=== PATIENT | male | born 1940 | race Caucasian/White ===

== ENCOUNTER 2016-12-11 14:04 | Outpatient (CLI) | payer MEDICARE | END 2016-12-11 14:05 | disposition home or self-care (01) | DX: G47.33 Obstructive sleep apnea (adult) (pediatric) (principal) | CPT/HCPCS: 99213; G0463 ==

== ENCOUNTER 2017-01-08 14:11 | Outpatient (CLI) | payer MEDICARE | END 2017-01-08 14:12 | disposition home or self-care (01) | DX: G47.33 Obstructive sleep apnea (adult) (pediatric) (principal) | CPT/HCPCS: 99213; G0463 ==

== ENCOUNTER 2017-03-28 08:43 | Outpatient (CLI) | payer MEDICARE | END 2017-03-28 08:44 | disposition home or self-care (01) | DX: I10 Essential (primary) hypertension (principal); E78.5 Hyperlipidemia, unspecified ==

== ENCOUNTER 2017-04-09 17:30 | Emergency (ER) | payer MEDICARE ==
[2017-04-09] MEDS ORDERED: BUFFERED LIDOCAINE 10 ML SYRINGE ONE (17:53)
[2017-04-09] MEDS ORDERED: TETANUS/DIPHTHERIA/PERTUSSIS 0.5 ML SYRINGE IM ONE ×2 (18:18→18:36)
[2017-04-09] MEDS ORDERED: CEPHALEXIN 250 MG CAPSULE PO STA (18:18)
--- NOTE | 2017-04-09 18:21 | ED Physician Documentation ---
PD HPI UPPER EXT INJURY - Stated complaint Stated Complaint: R THUMB LAC - Chief complaint Chief Complaint: Laceration - History obtained from History obtained from: Patient - History of Present Illness Location: Right (76-year-old gentleman, not up-to-date on tetanus, right- handed. Cut his right thumb on a table saw today. Has an extensive laceration on the thumb. Says he is allergic to tetanus, but that was 50 years ago, and it just made his arm sore. After discussion of risks and benefits he does want tetanus shot.) Review of Systems Constitutional: reports: Reviewed and negative Nose: reports: Reviewed and negative Throat: reports: Reviewed and negative PD PAST MEDICAL HISTORY - Past Medical History Cardiovascular: Hypertension Respiratory: None Neuro: None, CVA Endocrine/Autoimmune: None Psych: None Musculoskeletal: Osteoarthritis - Present Medications Home Medications: Ambulatory Orders Medication Instructions Recorded Confirmed Aspirin Chewable [[place]von 81 mg PO DAILY 04/09/17 04/09/17 Aspirin] Cephalexin [Keflex] 500 mg PO QID #40 capsule 04/09/17 HYDROcod/ACETAM 5/325 [[place] 5/325] 1 - 2 ea PO Q6H PRN #15 tablet 04/09/17 Valsartan 80 mg PO DAILY 04/09/17 04/09/17 - Allergies Allergies/Adverse Reactions: Allergies Allergy/AdvReac Type Severity Reaction Status Date / Time Tetanus Vaccines and Toxoid Allergy Unknown Verified 04/09/17 17:51 - Social History Does the pt smoke?: No Smoking Status: Never smoker Does the pt drink ETOH?: No Does the pt have substance abuse?: No - Immunizations Immunizations are current?: No Immunizations: TDAP >10years/unknown PD ED PE NORMAL - Vitals Vital signs reviewed: Yes - General General: Alert and oriented X 3, No acute distress - HEENT HEENT: PERRL, EOMI - Extremities Extremities: Other (The radial side of the right thumb there is a curved deep 3 cm laceration which has avulsed some of the nail.) - Neuro Neuro: Alert and oriented X 3, Normal speech - Psych Psych: Normal mood, Normal affect Results - Vitals Vitals: Vital Signs - 24 hr 04/09/17 04/09/17 17:35 18:56 Temperature 36.0 C L 36.5 C Heart Rate 64 61 Respiratory 16 12 Rate Blood Pressure 173/93 H 160/84 H O2 Saturation 97 100 Oxygen O2 Source Room air - Rads (name of study) R thumb Radiology: EMP read contemporaneously (Right thumb swelling with a subtle fracture of the tuft) Procedures - Laceration (location) right thumb Length in cm: 3 Wound type: Curved, Irregular, Into subcut fat Neurovascular status: No: Sensory intact (flap is insensate) Tendon involvement: Tendon intact, Tendon Injury Anesthesia: Lidocaine 1%, With bicarb Wound Preparation: Chlorhexadine, Irrigated copiously NS, Debrided extensively ( ppiece of nail removed) Skin layer closure: Nylon, Interrupted, Size #-0 - enter number (4-0), Sutures - enter # (13) Other: Patient tolerated well, No complications, Neurovascular intact, Tetanus booster given Departure - Departure Disposition: 01 Home, Self Care Clinical Impression: Thumb laceration Qualifiers: Encounter type: initial encounter Laterality: right Qualified Code(s): S61.011A - Laceration without foreign body of right thumb without damage to nail , initial encounter Open fracture of thumb Qualifiers: Encounter type: initial encounter Phalanx: distal Fracture alignment: nondisplaced Laterality: right Qualified Code(s): S62.524B - Nondisplaced fracture of distal phalanx of right thumb, initial encounter for open fracture Condition: Good Record reviewed to determine appropriate education?: Yes Instructions: ED Laceration All Prescriptions: Cephalexin [Keflex] 500 mg PO QID #40 capsule HYDROcod/ACETAM 5/325 [[place] 5/325] 1 - 2 ea PO Q6H PRN #15 tablet PRN Reason: Pain Comments: Wash the wound briefly but in general keep it dry and covered. Come back for any signs of infection which would include: Redness, swelling, drainage, increased pain, or fevers. Followup with your doctor in 14 days for suture removal. Your blood pressure was elevated today on check in to the emergency department. This does not mean that you have hypertension, it is a common phenomenon to check into the emergency department and have elevated blood pressure. I recommend that you see your primary care physician within the week to have it rechecked when you're feeling better.
[2017-04-09] MEDS ORDERED: CEPHALEXIN 250 MG CAPSULE PO ONE (18:35)
--- NOTE | 2017-04-09 18:54 | XRAY Preliminary Report ---
Exam: XR Finger(s) RT IMPRESSION: 1. Right thumb swelling noted. 2. Suspect a subtle fracture of the right thumb distal phalanx tuft. 3. No dislocation. [facility] SITE ID: [id number]
[2017-04-09 18:57] VITALS: BP 160/84
--- NOTE | 2017-04-09 19:06 | XRAY Report ---
EXAM: RIGHT FIRST DIGIT RADIOGRAPHY EXAM DATE: 04/09/2017 06:34 PM. CLINICAL HISTORY: Thumb injury. COMPARISON: None. TECHNIQUE: 3 views. FINDINGS: Bones: Mild cortical irregularity adjacent to the medial distal first phalanx tuft. This could repres ent a small fracture fragment. Joints: Normal. No subluxations. Soft Tissues: Diffuse swelling in the distal right thumb. IMPRESSION: 1. Right thumb swelling noted. 2. Suspect a subtle fracture of the right thumb distal phalanx tuft. 3. No dislocation. [facility] Referring Provider Line: [phone] SITE ID: [id number]
== END 2017-04-09 19:04 | disposition home or self-care (01) ==
LOC: ED 17:30
DX: S62.521B Displaced fracture of distal phalanx of right thumb, initial encounter for open fracture (principal); W31.2XXA Contact with powered woodworking and forming machines, initial encounter; Z23 Encounter for immunization; I10 Essential (primary) hypertension; Z86.73 Personal history of transient ischemic attack (TIA), and cerebral infarction without residual deficits; M19.90 Unspecified osteoarthritis, unspecified site; Z79.82 Long term (current) use of aspirin
CPT/HCPCS: 11730; 12002; 73140; 90471; 90715; 99283; A9270

== ENCOUNTER 2018-01-16 14:49 | Outpatient (CLI) | payer MEDICARE | END 2018-01-16 14:50 | disposition home or self-care (01) | LOC: SC 14:49 | PROVIDERS: ATTEND Nurse Practitioner Family | DX: G47.33 Obstructive sleep apnea (adult) (pediatric) (principal) | CPT/HCPCS: 99214; G0463; 99212 ==

== ENCOUNTER 2018-02-13 09:33 | Outpatient (CLI) | payer MEDICARE ==
[2018-02-13 17:52] LABS: ALBUMIN 4.1 g/dL (3.2-5.5); ALBUMIN/GLOBULIN RATIO 1.2 (1.0-2.2); ALKALINE PHOSPHATASE 45 IU/L (42-121); ALT ALANINE AMINOTRANSFERASE 13 IU/L (10-60); AST ASPARTATE AMINOTRANSFERASE 18 IU/L (10-42); BILIRUBIN,TOTAL 0.9 mg/dL (0.2-1.0); BUN - BLOOD UREA NITROGEN 20 mg/dL (6-20); CALCIUM 8.9 mg/dL (8.5-10.3); CARBON DIOXIDE - CO2 26 mmol/L (21-32); CHLORIDE 102 mmol/L (101-111); CHOL/HDL RATIO 4.8 (<5.0); CHOLESTEROL 203 mg/dL; CREATININE 1.2 mg/dL (0.6-1.2); GFR - MDRD 59 (>89); GLUCOSE 104 mg/dL (70-100); HDL CHOLESTEROL 42 mg/dL; LDL CHOLESTEROL,CALCULATED 128 mg/dL; SODIUM 137 mmol/L (135-145); TOTAL PROTEIN 7.5 g/dL (6.7-8.2); VLDL CHOLESTEROL 33 mg/dL
== END 2018-02-13 09:34 | disposition home or self-care (01) ==
LOC: LAB.F 09:33
PROVIDERS: ATTEND Physician Assistant Medical
DX: E78.5 Hyperlipidemia, unspecified (principal); Z12.5 Encounter for screening for malignant neoplasm of prostate; E04.1 Nontoxic single thyroid nodule; Z51.81 Encounter for therapeutic drug level monitoring; Z79.899 Other long term (current) drug therapy
CPT/HCPCS: 36415; 80053; 80061; 84443; G0103; 83721; 84153

== ENCOUNTER 2018-03-06 14:24 | Outpatient (CLI) | payer MEDICARE | END 2018-03-06 14:25 | disposition home or self-care (01) | LOC: SC 14:24 | PROVIDERS: ATTEND Nurse Practitioner Family | DX: G47.33 Obstructive sleep apnea (adult) (pediatric) (principal); G47.31 Primary central sleep apnea | CPT/HCPCS: 99214; G0463; 99212 ==

== ENCOUNTER 2018-05-07 13:49 | Outpatient (CLI) | payer MEDICARE | END 2018-05-07 13:50 | disposition home or self-care (01) | LOC: SC 13:49 | PROVIDERS: ATTEND Nurse Practitioner Family | DX: G47.33 Obstructive sleep apnea (adult) (pediatric) (principal) | CPT/HCPCS: 99214; G0463; 99212 ==

== ENCOUNTER 2018-07-30 13:38 | Outpatient (CLI) | payer MEDICARE | END 2018-07-30 13:39 | disposition home or self-care (01) | LOC: SC 13:38 | PROVIDERS: ATTEND Nurse Practitioner Family | DX: G47.33 Obstructive sleep apnea (adult) (pediatric) (principal) | CPT/HCPCS: 99214; G0463; 99212 ==

== ENCOUNTER 2018-09-10 13:22 | Outpatient (CLI) | payer MEDICARE | END 2018-09-10 13:23 | disposition home or self-care (01) | LOC: SC 13:22 | PROVIDERS: ATTEND Nurse Practitioner Family | DX: G47.33 Obstructive sleep apnea (adult) (pediatric) (principal) | CPT/HCPCS: 99214; G0463; 99212 ==

== ENCOUNTER 2018-10-21 15:10 | Outpatient (CLI) | payer MEDICARE ==
--- NOTE | 2018-10-22 10:23 | Ultrasound Report ---
Reason: THYROID NODULE Procedure Date: 10/21/2018 Accession Number: [id number] / [id number] Procedure: US - Head or Neck Soft Tissue CPT Code: FULL RESULT: EXAM: THYROID ULTRASOUND EXAM DATE: 10/21/2018 03:48 PM. CLINICAL HISTORY: Thyroid nodule. COMPARISON: CT angiogram head neck 12/07/2015 3:58 PM. TECHNIQUE: Real time sonographic imaging of the thyroid was performed by the hospital admissions officer. Multiple territory representative static images were saved for review. FINDINGS: THYROID GLAND: Right Lobe: 1.6 x 1.6 x 4.2 cm, volume 23 cc. Normal background echotexture. Right Lobe Nodules: A homogenously hypoechoic well-circumscribed 1.1 x 0.8 x 1.0 cm right posterior exophytic thyroid nodule is identified, essentially unchanged compared to 2016. Left Lobe: 1.5 x 1.7 x 3.9 cm, volume 5.2 cc. Normal background echotexture. Left Lobe Nodules: None. Isthmus: 0.8 cm AP. Isthmic Nodules: None. LYMPH NODES: No adenopathy demonstrated in the central or lateral compartment. OTHER: IMPRESSION: Ultrasound appearance is of intermediate suspicion by PATRICIA criteria and size greater than 1 cm meets PATRICIA criteria for fine-needle aspiration. Recommendation: Fine-needle aspiration. Alternatively, given two-year stability continued annual ultrasound follow-up is also reasonable. Please note that while technically difficult, fine-needle aspiration is possible. Management recommendations are based on 2015 [place] [employer] Management Guidelines for Adult Patients with Thyroid Nodules and Differentiated Thyroid Cancer. [facility]
== END 2018-10-21 15:11 | disposition home or self-care (01) ==
LOC: DI 15:10
PROVIDERS: ATTEND Physician Assistant Medical
DX: E04.1 Nontoxic single thyroid nodule (principal)
CPT/HCPCS: 76536

== ENCOUNTER 2019-02-26 11:02 | Outpatient (CLI) | payer MEDICARE | END 2019-02-26 11:03 | disposition home or self-care (01) | LOC: SC 11:02 | PROVIDERS: ATTEND Nurse Practitioner Family | DX: G47.33 Obstructive sleep apnea (adult) (pediatric) (principal); R60.0 Localized edema | CPT/HCPCS: 99214; G0463; 99212 ==

== ENCOUNTER 2019-05-14 10:05 | Outpatient (CLI) | payer MEDICARE ==
[2019-05-14 17:52] LABS: BASOPHILS % (AUTO) 0.6 %; EOSINOPHILS # (AUTO) 0.3 10^3/uL (0.0-0.7); EOSINOPHILS % (AUTO) 3.7 %; HGB - HEMOGLOBIN 14.3 g/dL (14.0-18.0); LYMPHOCYTES # (AUTO) 1.3 10^3/uL (1.5-3.5); LYMPHOCYTES % (AUTO) 19.8 %; MEAN CORPUSCULAR HEMOGLOBIN 31.2 pg (27.0-31.0); MEAN CORPUSCULAR HGB CONC 31.8 g/dL (32.0-36.0); MEAN CORPUSCULAR VOLUME 97.8 fL (80.0-94.0); MEAN PLATELET VOLUME 11.6 fL (7.4-11.4); MONOCYTES # (AUTO) 0.6 10^3/uL (0.0-1.0); MONOCYTES % (AUTO) 8.3 %; NEUTROPHILS # (AUTO) 4.6 10^3/uL (1.5-6.6); NEUTROPHILS % (AUTO) 67.3 %; PLT - PLATELET COUNT 178 10^3/uL (130-450); RED BLOOD COUNT 4.59 10^6/uL (4.70-6.10); RED CELL DISTRIBUTION WIDTH 12.4 % (12.0-15.0); WHITE BLOOD COUNT 6.8 x10^3/uL (4.8-10.8)
[2019-05-14 18:09] LABS: HB2 TOTAL 15.3 g/dL; HEMOGLOBIN A1C 0.61 g/dL; HEMOGLOBIN A1C % 5.8 % (4.6-6.2)
[2019-05-14 18:19] LABS: ALBUMIN 4.1 g/dL (3.2-5.5); ALBUMIN/GLOBULIN RATIO 1.1 (1.0-2.2); ALKALINE PHOSPHATASE 50 IU/L (42-121); ALT ALANINE AMINOTRANSFERASE 20 IU/L (10-60); AST ASPARTATE AMINOTRANSFERASE 22 IU/L (10-42); BUN - BLOOD UREA NITROGEN 17 mg/dL (6-20); CALCIUM 8.9 mg/dL (8.5-10.3); CARBON DIOXIDE - CO2 27 mmol/L (21-32); CHLORIDE 102 mmol/L (101-111); CHOL/HDL RATIO 4.2 (<5.0); CHOLESTEROL 222 mg/dL; CREATININE 1.1 mg/dL (0.6-1.2); GFR - MDRD 65 (>89); GLUCOSE 114 mg/dL (70-100); HDL CHOLESTEROL 53 mg/dL; LDL CHOLESTEROL,CALCULATED 142 mg/dL; LDL/HDL RATIO 2.7 (<3.6); SODIUM 138 mmol/L (135-145); TOTAL PROTEIN 7.7 g/dL (6.7-8.2); VLDL CHOLESTEROL 27 mg/dL
== END 2019-05-14 10:06 | disposition home or self-care (01) ==
LOC: LAB.F 10:05
PROVIDERS: ATTEND Registered Nurse
DX: E04.1 Nontoxic single thyroid nodule (principal); I10 Essential (primary) hypertension; R73.01 Impaired fasting glucose
CPT/HCPCS: 36415; 80053; 80061; 83036; 83721; 84443; 85025

== ENCOUNTER 2019-08-13 08:57 | Outpatient (CLI) | payer MEDICARE ==
[2019-08-13 17:43] LABS: CALCIUM 9.2 mg/dL (8.5-10.3); CREATININE 1.2 mg/dL (0.6-1.2)
== END 2019-08-13 08:58 | disposition home or self-care (01) ==
LOC: LAB.S 08:57
PROVIDERS: ATTEND Registered Nurse
DX: R60.9 Edema, unspecified (principal); I10 Essential (primary) hypertension
CPT/HCPCS: 36415; 80048

== ENCOUNTER 2019-12-11 09:33 | Outpatient (CLI) | payer MEDICARE | END 2019-12-11 09:34 | disposition critical access hospital (66) | LOC: EMS 09:33 | PROVIDERS: ATTEND Surgery | DX: R42 Dizziness and giddiness (principal) | CPT/HCPCS: A0425; A0429 ==

== ENCOUNTER 2019-12-11 09:56 | Emergency (ER) | payer MEDICARE ==
--- NOTE | 2019-12-11 10:38 | ED Physician Documentation ---
PD HPI HEENT - Stated complaint Stated Complaint: DIZZY - Chief complaint Chief Complaint: Neuro - History obtained from History obtained from: Patient - History of Present Illness Timing - onset: Yesterday Timing - duration: Days (11/27) Timing - details: Abrupt onset (onset vertigo when rolled over in bed and again when sat up from bed. Dizziness lessens with holding still. Worse with moving head. Has had chronic ringing left ear. Has had some vertigo in the past, but usually lessens sooner.), Still present Location: Left ear (ringing left ear chronically. now with persistent positional vertigo since yesterday.) Worsens: Position Associated symptoms: No: Fever, Congestion, Rhinorrhea, Facial swelling, Headache, Cough Similar symptoms before: Diagnosis (vertigo) Recently seen: Not recently seen Review of Systems Constitutional: denies: Fever, Chills Nose: denies: Rhinorrhea / runny nose, Congestion Throat: denies: Sore throat Respiratory: denies: Cough GI: reports: Nausea (with the vertigo). denies: Vomiting, Diarrhea Neurologic: denies: Focal weakness, Numbness, Near syncope PD PAST MEDICAL HISTORY - Past Medical History Cardiovascular: Hypertension Respiratory: None Endocrine/Autoimmune: None Psych: None Musculoskeletal: Osteoarthritis - Present Medications Home Medications: Ambulatory Orders Medication Instructions Recorded Confirmed Aspirin Chewable [St Trevon 81 mg PO DAILY 04/09/17 04/09/17 Aspirin] Cephalexin [Keflex] 500 mg PO QID #40 capsule 04/09/17 HYDROcod/ACETAM 5/325 [[place] 5/325] 1 - 2 ea PO Q6H PRN #15 tablet 04/09/17 Valsartan 80 mg PO DAILY 04/09/17 04/09/17 Meclizine HCl [Motion Sickness 25 mg PO Q6H PRN #25 tablet 12/11/19 Relief] dexAMETHasone [Decadron] 4 mg PO DAILY #5 tablet 12/11/19 - Allergies Allergies/Adverse Reactions: Allergies Allergy/AdvReac Type Severity Reaction Status Date / Time Tetanus Vaccines and Toxoid Allergy Unknown Verified 12/11/19 10:04 - Social History Does the pt smoke?: No Smoking Status: Never smoker Does the pt drink ETOH?: No Does the pt have substance abuse?: No - Immunizations Immunizations are current?: No Immunizations: TDAP >10years/unknown PD ED PE NORMAL - Vitals Vital signs reviewed: Yes - General General: Alert and oriented X 3, No acute distress, Well developed/nourished, Other (holding head very still. 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1 Estimated GFR (MDRD) 65 L Glucose 128 H Calcium 8.9 Magnesium 2.1 Total Bilirubin 1.1 H AST 18 ALT 15 Alkaline Phosphatase 47 Troponin I High Sens Total Protein 7.8 Albumin 4.2 Globulin 3.6 Albumin/Globulin Ratio 1.2 Lipase 29 Vitamin B12 191 TSH 2.16 12/11/19 10:35 WBC RBC Hgb Hct MCV MCH MCHC RDW Plt Count MPV Neut # (Auto) Lymph # (Auto) [place] # (Auto) Eos # (Auto) Baso # (Auto) Absolute Nucleated RBC Nucleated RBC % Sodium Potassium Chloride Carbon Dioxide Anion Gap BUN Creatinine Estimated GFR (MDRD) Glucose Calcium Magnesium Total Bilirubin AST ALT Alkaline Phosphatase Troponin I High Sens 4.7 Total Protein Albumin Globulin Albumin/Globulin Ratio Lipase Vitamin B12 TSH PD MEDICAL DECISION MAKING - ED course Complexity details: reviewed results, re-evaluated patient (improved with Meclizine), considered differential (positional vertigo without focal deficits. ), d/w patient Departure - Departure Disposition: 01 Home, Self Care Clinical Impression: Acute onset of severe vertigo Condition: Stable Record reviewed to determine appropriate education?: Yes Instructions: ED Vertigo Unspecified Follow-Up: Zofia Varner ARNP [Primary Care Provider] - Prescriptions: dexAMETHasone [Decadron] 4 mg PO DAILY #5 tablet Meclizine HCl [Motion Sickness Relief] 25 mg PO Q6H PRN #25 tablet PRN Reason: Vertigo Comments: Slow movements and position changes to reduce the vertigo. Meclizine every 6 hours if needed for the dizziness to decrease the symptoms. Decadron steroid daily for 5 days to decrease presumed inflammation in the inner ear. Recheck if not improved over the next couple of days and return if worsening or other symptoms associated. Discharge Date/Time: 12/11/19 13:19
[2019-12-11] MEDS ORDERED: DEXAMETHASONE 10 MG/ML VIAL IVP STA (10:59)
[2019-12-11] MEDS ORDERED: MECLIZINE 12.5 MG TABLET PO STA (10:59)
[2019-12-11 11:05] LABS: BASOPHILS % (AUTO) 0.6 %; EOSINOPHILS # (AUTO) 0.1 10^3/uL (0.0-0.7); EOSINOPHILS % (AUTO) 0.9 %; HGB - HEMOGLOBIN 14.5 g/dL (14.0-18.0); LYMPHOCYTES # (AUTO) 0.7 10^3/uL (1.5-3.5); LYMPHOCYTES % (AUTO) 11.5 %; MEAN CORPUSCULAR HEMOGLOBIN 31.6 pg (27.0-31.0); MEAN CORPUSCULAR HGB CONC 33.3 g/dL (32.0-36.0); MEAN CORPUSCULAR VOLUME 94.8 fL (80.0-94.0); MEAN PLATELET VOLUME 11.3 fL (7.4-11.4); MONOCYTES # (AUTO) 0.5 10^3/uL (0.0-1.0); MONOCYTES % (AUTO) 7.4 %; NEUTROPHILS % (AUTO) 79.3 %; PLT - PLATELET COUNT 173 10^3/uL (130-450); RED BLOOD COUNT 4.59 10^6/uL (4.70-6.10); WHITE BLOOD COUNT 6.4 x10^3/uL (4.8-10.8)
[2019-12-11 11:16] LABS: ALBUMIN 4.2 g/dL (3.2-5.5); ALBUMIN/GLOBULIN RATIO 1.2 (1.0-2.2); BILIRUBIN,TOTAL 1.1 mg/dL (0.2-1.0); CALCIUM 8.9 mg/dL (8.5-10.3); CREATININE 1.1 mg/dL (0.6-1.2); MAGNESIUM 2.1 mg/dL (1.7-2.8); TOTAL PROTEIN 7.8 g/dL (6.7-8.2)
[2019-12-11 11:35] LABS: THYROID STIMULATING HORMONE 2.16 uIU/mL (0.34-5.60)
[2019-12-11 12:57] VITALS: BP 154/93
== END 2019-12-11 13:19 | disposition home or self-care (01) ==
LOC: EDUNIT# → ED 09:56
DX: R42 Dizziness and giddiness (principal); I10 Essential (primary) hypertension
CPT/HCPCS: 36415; 80053; 82607; 83690; 83735; 84443; 84484; 85025; 93005; 96374; 99283; 99284; A9270

== ENCOUNTER 2020-08-17 09:23 | Outpatient (CLI) | payer MEDICARE ==
[2020-08-17 15:09] LABS: BASOPHILS % (AUTO) 0.6 %; EOSINOPHILS # (AUTO) 0.2 10^3/uL (0.0-0.7); EOSINOPHILS % (AUTO) 3.4 %; HGB - HEMOGLOBIN 15.4 g/dL (14.0-18.0); LYMPHOCYTES # (AUTO) 1.3 10^3/uL (1.5-3.5); LYMPHOCYTES % (AUTO) 17.6 %; MEAN CORPUSCULAR HEMOGLOBIN 31.5 pg (27.0-31.0); MEAN CORPUSCULAR HGB CONC 32.6 g/dL (32.0-36.0); MEAN CORPUSCULAR VOLUME 96.7 fL (80.0-94.0); MEAN PLATELET VOLUME 11.4 fL (7.4-11.4); MONOCYTES # (AUTO) 0.7 10^3/uL (0.0-1.0); MONOCYTES % (AUTO) 9.8 %; NEUTROPHILS # (AUTO) 4.9 10^3/uL (1.5-6.6); NEUTROPHILS % (AUTO) 68.5 %; PLT - PLATELET COUNT 150 10^3/uL (130-450); RED BLOOD COUNT 4.89 10^6/uL (4.70-6.10); RED CELL DISTRIBUTION WIDTH 12.8 % (12.0-15.0); WHITE BLOOD COUNT 7.2 x10^3/uL (4.8-10.8)
[2020-08-17 15:43] LABS: ALKALINE PHOSPHATASE 51 IU/L (42-121); ALT ALANINE AMINOTRANSFERASE 21 IU/L (10-60); AST ASPARTATE AMINOTRANSFERASE 22 IU/L (10-42); BILIRUBIN,TOTAL 1.1 mg/dL (0.2-1.0); BUN - BLOOD UREA NITROGEN 15 mg/dL (6-20); CALCIUM 9.1 mg/dL (8.5-10.3); CARBON DIOXIDE - CO2 27 mmol/L (21-32); CHLORIDE 101 mmol/L (101-111); CHOL/HDL RATIO 4.7 (<5.0); CHOLESTEROL 229 mg/dL; CREATININE 1.1 mg/dL (0.6-1.2); GLUCOSE 106 mg/dL (70-100); HDL CHOLESTEROL 49 mg/dL; LDL CHOLESTEROL,CALCULATED 145 mg/dL; SODIUM 136 mmol/L (135-145); TOTAL PROTEIN 7.9 g/dL (6.7-8.2); VLDL CHOLESTEROL 35 mg/dL
== END 2020-08-17 09:24 | disposition home or self-care (01) ==
LOC: LAB.S 09:23
PROVIDERS: ATTEND Registered Nurse
DX: I10 Essential (primary) hypertension (principal); E78.5 Hyperlipidemia, unspecified; J44.9 Chronic obstructive pulmonary disease, unspecified; I69.954 Hemiplegia and hemiparesis following unspecified cerebrovascular disease affecting left non-dominant side; N40.0 Benign prostatic hyperplasia without lower urinary tract symptoms; F32.9 Major depressive disorder, single episode, unspecified
CPT/HCPCS: 36415; 80053; 80061; 83721; 84153; 84443; 85025

== ENCOUNTER 2020-12-01 15:29 | Emergency (ER) | payer MEDICARE ==
--- NOTE | 2020-12-01 15:48 | ED Physician Documentation ---
PD HPI FOCAL NEURO - Stated complaint Stated Complaint: LEANING & WALKING SIDEWAYS, GLF - History obtained from History obtained from: Patient - Additional information Additional information: 80yo M with history of stroke, hypertension, takes aspirin but no other anticoagulants. He had a slip and fall yesterday hitting the back of his head in the mud, was not a big fall. Does not have a headache. This morning around 10 AM started to feel like he was veering to the right. He had difficulty walking and had to use his walking stick more than normal. Denies headache. Denies weakness, numbness, tingling. Review of Systems Ten Systems: 10 systems reviewed and negative Constitutional: reports: Reviewed and negative Nose: reports: Reviewed and negative Throat: reports: Reviewed and negative Cardiac: reports: Reviewed and negative PD PAST MEDICAL HISTORY - Past Medical History Cardiovascular: Hypertension Respiratory: None Neuro: CVA Endocrine/Autoimmune: None Psych: None Musculoskeletal: Osteoarthritis - Past Surgical History Past Surgical History: No - Present Medications Home Medications: Ambulatory Orders Medication Instructions Recorded Confirmed Aspirin Chewable [St Trevon 81 mg PO DAILY 04/09/17 12/01/20 Aspirin] Valsartan 80 mg PO DAILY 04/09/17 12/01/20 Meclizine HCl [Motion Sickness 25 mg PO Q6H PRN #25 tablet 12/11/19 12/01/20 Relief] dexAMETHasone [Decadron] 4 mg PO DAILY #5 tablet 12/11/19 12/01/20 cloNIDine [Catapres] 0.1 mg PO BID 12/01/20 12/01/20 - Allergies Allergies/Adverse Reactions: Allergies Allergy/AdvReac Type Severity Reaction Status Date / Time Tetanus Vaccines and Toxoid Allergy Unknown Verified 12/01/20 15:52 - Social History Does the pt smoke?: No Smoking Status: Never smoker Does the pt drink ETOH?: No Does the pt have substance abuse?: No - Immunizations Immunizations are current?: No Immunizations: TDAP >10years/unknown PD ED PE NORMAL - Vitals Vital signs reviewed: Yes - General General: Alert and oriented X 3, No acute distress - HEENT HEENT: PERRL, EOMI - Neck Neck: Supple, no meningeal sign, No bony TTP - Cardiac Cardiac: RRR, No murmur - Respiratory Respiratory: No respiratory distress, Clear bilaterally - Abdomen Abdomen: Non tender - Derm Derm: Normal color, Warm and dry - Extremities Extremities: No deformity, No tenderness to palpate, Normal ROM s pain - Neuro Neuro: Alert and oriented X 3, No motor deficit, No sensory deficit, Normal speech, Other (Has very mild truncal ataxia) Eye Opening: Spontaneous Motor: Obeys Commands Verbal: Oriented GCS Score: 15 NIHSS - Time Time: 15:45 - Level of Consciousness Level of consciousness: (0) Alert, Keenly responsive LOC Questions: (0) Answers both Q's correct LOC Commands: (0) Performs both correctly - Gaze Best Gaze: (0) Normal - Visual Visual: (0) No loss (cannot see from the right eye, dense cataract) - Facial Palsy Facial Palsy: (0) Normal, symmetrical movement - Motor Arms (both separate) Motor Arm (right): (0) No drift Motor Arm (left): (0) No drift - Motor Legs (both separate) Motor Leg (right): (0) No drift Motor Leg (left): (0) No drift - Limb Ataxia Limb Ataxia: (1) Present in 1 limb (mild LUE and truncal) - Sensory Sensory: (0) Normal - Best Language Best Language: (0) No aphasia - Dysarthria Dysarthria: (0) Normal - Extinction and Inattention (formally neg Extinction and inattention: (0) No abnormality - Total Score/Results Total Score/Result: 1 Results - Vitals Vitals: Vital Signs - 24 hr 12/01/20 12/01/20 12/01/20 15:40 16:43 17:00 Temperature 36.8 C 36.4 C L Heart Rate 80 66 77 Respiratory 16 17 25 H Rate Blood Pressure 186/112 H 169/89 H 200/152 H O2 Saturation 96 98 96 12/01/20 12/01/20 12/01/20 17:17 17:28 17:29 Temperature Heart Rate 67 68 68 Respiratory 20 17 17 Rate Blood Pressure 175/100 H 177/90 H 171/94 H O2 Saturation 97 97 98 12/01/20 12/01/20 12/01/20 17:30 17:40 17:50 Temperature Heart Rate 68 70 75 Respiratory 22 16 21 Rate Blood Pressure 160/95 H 153/79 H 155/83 H O2 Saturation 95 97 98 12/01/20 12/01/20 12/01/20 18:07 18:20 18:42 Temperature Heart Rate 72 72 73 Respiratory 20 19 19 Rate Blood Pressure 150/78 H 145/69 H 150/78 H O2 Saturation 96 97 97 12/01/20 12/01/20 12/01/20 18:43 18:48 20:10 Temperature 36.9 C Heart Rate 72 71 71 Respiratory 17 20 Rate Blood Pressure 153/78 H 153/76 H 159/87 H O2 Saturation 97 95 97 12/01/20 12/01/20 20:13 20:33 Temperature 36.8 C Heart Rate 70 75 Respiratory 16 19 Rate Blood Pressure 159/87 H 159/87 H O2 Saturation 95 97 Oxygen O2 Source Room air - EKG (time done) 1552 Rate: Rate (enter#) (73) Rhythm: NSR [place]: Normal Intervals: RBBB QRS: Normal Ischemia: Normal ST segments - Labs Labs: Laboratory Tests 12/01/20 12/01/20 12/01/20 15:53 15:53 15:53 WBC 9.1 RBC 4.78 Hgb 15.2 Hct 44.9 MCV 93.9 MCH 31.8 H MCHC 33.9 RDW 12.2 Plt Count 188 MPV 10.7 Neut # (Auto) 7.0 H Lymph # (Auto) 1.3 L [place] # (Auto) 0.7 Eos # (Auto) 0.1 Baso # (Auto) 0.0 Absolute Nucleated RBC 0.00 Nucleated RBC % 0.0 PT 12.5 INR 1.1 Sodium 136 Potassium 3.7 Chloride 100 L Carbon Dioxide 24 Anion Gap 12.0 BUN 16 Creatinine 1.2 Estimated GFR (MDRD) 58 L Glucose 105 H Calcium 9.4 Total Bilirubin 1.0 AST 24 ALT 17 Alkaline Phosphatase 52 Total Protein 8.4 H Albumin 4.6 Globulin 3.8 Albumin/Globulin Ratio 1.2 Lipase 24 Nasal Adenovirus (PCR) Nasal B. parapertussis DNA (PCR) Nasal Coronavir 229E PCR Nasal Coronavir HKU1 PCR Nasal Coronavir NL63 PCR Nasal Coronavir OC43 PCR Nasal Enterovir/Rhinovir PCR Nasal Influenza B PCR Nasal Influenza A PCR Nasal Parainfluen 1 PCR Nasal Parainfluen 2 PCR Nasal Parainfluen 3 PCR Nasal Parainfluen 4 PCR Nasal RSV (PCR) Nasal B.pertussis DNA PCR Nasal C.pneumoniae (PCR) Lio Human Metapneumo PCR Nasal M.pneumoniae (PCR) Nasal SARS-CoV-2 (PCR) Ethyl Alcohol < 5.0 12/01/20 17:15 WBC RBC Hgb Hct MCV MCH MCHC RDW Plt Count MPV Neut # (Auto) Lymph # (Auto) [place] # (Auto) Eos # (Auto) Baso # (Auto) Absolute Nucleated RBC Nucleated RBC % PT INR Sodium Potassium Chloride Carbon Dioxide Anion Gap BUN Creatinine Estimated GFR (MDRD) Glucose Calcium Total Bilirubin AST ALT Alkaline Phosphatase Total Protein Albumin Globulin Albumin/Globulin Ratio Lipase Nasal Adenovirus (PCR) NOT DETECTED Nasal B. parapertussis DNA (PCR) NOT DETECTED Nasal Coronavir 229E PCR NOT DETECTED Nasal Coronavir HKU1 PCR NOT DETECTED Nasal Coronavir NL63 PCR NOT DETECTED Nasal Coronavir OC43 PCR NOT DETECTED Nasal Enterovir/Rhinovir PCR NOT DETECTED Nasal Influenza B PCR NOT DETECTED Nasal Influenza A PCR NOT DETECTED Nasal Parainfluen 1 PCR NOT DETECTED Nasal Parainfluen 2 PCR NOT DETECTED Nasal Parainfluen 3 PCR NOT DETECTED Nasal Parainfluen 4 PCR NOT DETECTED Nasal RSV (PCR) NOT DETECTED Nasal B.pertussis DNA PCR NOT DETECTED Nasal C.pneumoniae (PCR) NOT DETECTED Lio Human Metapneumo PCR NOT DETECTED Nasal M.pneumoniae (PCR) NOT DETECTED Nasal SARS-CoV-2 (PCR) NOT DETECTED Ethyl Alcohol - Rads (name of study) CTA Head Radiology: EMP read contemporaneously (No vascular disease obvious but he has encephalomalacia at the right frontoparietal junction seen superiorly without mass-effect indicating an area of prior stroke measuring 2.1 x 3.7 cm. There is a thin subdural parafalcine hematoma measuring 3 mm x 6.2 cm without other intracranial hemorrhage.) CTA Neck Radiology: EMP read contemporaneously (No trauma or vascular issues.) PD MEDICAL DECISION MAKING - ED course ED course: [employer] respiratory panel ordered to rapidly test specifically for COVID-19 in this patient who is expected to be hospitalized 80-year-old gentleman with history of stroke on aspirin, he does not know his other medications. Yesterday he had a small fall and hit the back of his head in the mud. He really did not think much of it. Today since approximately 10 AM he has had Difficulty walking and feeling like he is veering to the side and does have some ataxia in the left upper extremity and truncal Ataxia. Initially consideration given to him being a stroke code but on arrival it has been about 5 and half hours since the onset of symptoms and as such she would be outside of the window for TPA. He went over for CT angiography of the head and neck which demonstrates a parafalcine subdural hematoma. He wanted to go to [facility] for specialty care since he has had good luck there in the past and that is where he was treated for his prior stroke and they were called at approximately 5 PM for transfer. He was excepted by the trauma surgeon there Dr. Harvey at 530 and subsequently accepted by the ER doctor there Dr. Otto at 5:38 PM. [place]ras were completed. Stable for transport. He did receive some hydralazine for his blood pressure. Departure - Departure Disposition: 02 Transfer Acute Care Hosp Clinical Impression: Subdural hemorrhage following injury Condition: Serious Discharge Date/Time: 12/01/20 21:07
[2020-12-01] MEDS ORDERED: IOVERSOL 320 100 ML VIAL IVP ONE ×3 (15:54→16:51)
[2020-12-01 15:59] LABS: BASOPHILS % (AUTO) 0.3 %; EOSINOPHILS # (AUTO) 0.1 10^3/uL (0.0-0.7); HCT - HEMATOCRIT 44.9 % (42.0-52.0); HGB - HEMOGLOBIN 15.2 g/dL (14.0-18.0); LYMPHOCYTES # (AUTO) 1.3 10^3/uL (1.5-3.5); LYMPHOCYTES % (AUTO) 13.9 %; MEAN CORPUSCULAR HEMOGLOBIN 31.8 pg (27.0-31.0); MEAN CORPUSCULAR HGB CONC 33.9 g/dL (32.0-36.0); MEAN CORPUSCULAR VOLUME 93.9 fL (80.0-94.0); MEAN PLATELET VOLUME 10.7 fL (7.4-11.4); MONOCYTES # (AUTO) 0.7 10^3/uL (0.0-1.0); MONOCYTES % (AUTO) 7.8 %; NEUTROPHILS % (AUTO) 76.7 %; PLT - PLATELET COUNT 188 10^3/uL (130-450); RED BLOOD COUNT 4.78 10^6/uL (4.70-6.10); RED CELL DISTRIBUTION WIDTH 12.2 % (12.0-15.0); WHITE BLOOD COUNT 9.1 x10^3/uL (4.8-10.8)
[2020-12-01 16:14] LABS: INR 1.1 (0.8-1.2); PT - PROTHROMBIN TIME 12.5 secs (9.9-12.6)
[2020-12-01 16:16] LABS: ALBUMIN 4.6 g/dL (3.2-5.5); ALBUMIN/GLOBULIN RATIO 1.2 (1.0-2.2); ALKALINE PHOSPHATASE 52 IU/L (42-121); ALT ALANINE AMINOTRANSFERASE 17 IU/L (10-60); AST ASPARTATE AMINOTRANSFERASE 24 IU/L (10-42); BUN - BLOOD UREA NITROGEN 16 mg/dL (6-20); CALCIUM 9.4 mg/dL (8.5-10.3); CARBON DIOXIDE - CO2 24 mmol/L (21-32); CHLORIDE 100 mmol/L (101-111); CREATININE 1.2 mg/dL (0.6-1.2); ETOH - ETHANOL < 5.0 mg/dL; GFR - MDRD 58 (>89); GLUCOSE 105 mg/dL (70-100); LIPASE 24 U/L (22-51); POTASSIUM 3.7 mmol/L (3.5-5.0); SODIUM 136 mmol/L (135-145); TOTAL PROTEIN 8.4 g/dL (6.7-8.2)
--- NOTE | 2020-12-01 16:59 | CT Report ---
PROCEDURE: ANGIO HEAD W/WO INDICATIONS: Leaning to right CONTRAST: IV CONTRAST: Optiray 320 ml: 80 PO CONTRAST: *NO PO CONTRAST TECHNIQUE: Precontrast 4.5 mm thick angled axial sections acquired from the foramen magnum to the vertex. Afte r the administration of intravenous contrast, 1 mm thick sections acquired through the [place] of [place] is. Postcontrast 4.5 mm thick sections then re-acquired from the foramen magnum to the vertex. 3-di mensional xrgwsgx-cwbbummfj-aiwishsitx (MIP) and/or volume rendering reformats were acquired of the c entral intracranial vasculature. For radiation dose reduction, the following was used: automated ex posure control, adjustment of mA and/or kV according to patient size. COMPARISON: None currently available for review. According to the emergency room physician a prior h ead CT from approximately 5-6 years ago had been obtained and search for that FINDINGS: Image quality: Excellent. Anterior circulation: Intracranial internal carotid arteries are normal in size and flow. The flow within the paired anterior cerebral arteries is normal and symmetric. The flow within the middle cer ebral arteries is normal and symmetric. The anterior communicating artery is seen. No aneurysms are seen. Posterior circulation: Visualized portions of the vertebral arteries demonstrate normal caliber, and join to form a normal appearing basilar artery. Flow within the posterior cerebral arteries is norm al and symmetric. No aneurysms are seen. CSF spaces: Ventricles are normal in size and shape. Basal cisterns are patent. No extra-axial flu id collections. Brain: No midline shift. No intracranial masses, however there is a midline parafalcine thin subdur al hematoma, measuring approximately 3 mm in thickness without significant mass effect. This extends anterior-posterior for approximately 6.2 cm, tapering posteriorly. Barriga-white matter interface appea rs intact except in a frontoparietal junction portion of the right hemispheric cortex, where encephal omalacia is present in an area measuring approximately 2 cm AP and 3.7 cm transverse, without mass ef fect.. Skull and face: Calvarium and facial bones appear intact, without suspicious lesions. Sinuses: Visualized sinuses and mastoids are clear. IMPRESSION: No evidence of aneurysm or embolic disease but there is an area of chronic encephalomalacia at the [facility] frontoparietal junction seen superiorly, without mass effect, indicating an area of prior stroke measuring approximately 2.1 x 3.7 cm. The presence of a thin subdural parafalcine hematoma was discussed in detail with the emergency room physician caring for the patient. No mass effect is associated and the subdural hematoma is left para falcine, measuring only approximately 3 mm in transverse dimension and extending over an AP length al shahzad the midline falx of 6.2 cm. No additional intracranial hemorrhage is found. Reviewed by: Rahul Zamudio MD on 12/01/2020 4:58 PM PST Approved by: Rahul Zamudio MD on 12/01/2020 4:58 PM PST Station ID: [id number]
--- NOTE | 2020-12-01 17:02 | CT Report ---
PROCEDURE: ANGIO NECK W INDICATIONS: Leaning to right CONTRAST: IV CONTRAST: Optiray 320 ml: 100 PO CONTRAST: *NO PO CONTRAST TECHNIQUE: After the administration of intravenous contrast, 1.5 mm axial sections acquired from the aortic arch to the [place] of [place]. Coronal 3-D maximum intensity projection (MIP) and/or volume rendering ref ormats were then performed. For radiation dose reduction, the following was used: automated exposur e control, adjustment of mA and/or kV according to patient size. COMPARISON: Intracranial CT angiogram same day reviewed. That study identifies a thin 3 mm transvers e dimension 6.2 cm AP dimension left parafalcine anterior subdural hematoma. FINDINGS: Image quality: Excellent. Carotid system: The great vessels demonstrate a conventional anatomy as they arise from the aortic a rch. The origins of the common carotid arteries appear patent. The common carotid arteries demonstr ate normal calibers and courses. The bifurcation regions appear normal bilaterally. The internal ca rotid arteries demonstrate normal caliber and course. Posterior circulation: The origins of the vertebral arteries appear patent. The more superior porti ons of the vertebral arteries demonstrate normal course and caliber. They join to form a normal appe aring basilar artery. Soft tissues: Visualized neck soft tissues demonstrate no suspicious abnormalities. The thyroid gla nd is normal in size. Bones: No suspicious bony lesions. Visualized cervical spine appears normally aligned. IMPRESSION: No trauma found, no significant stenosis identified. Note is made of a faintly visualized left anteri or parafalcine hematoma much better visualized on the dedicated intracranial CT angiogram performed s . Please refer to the report from that study for additional details. No mass effect associated . The estimate of stenosis included in the report of the imaging study was calculated using the NASCET method Reviewed by: Rahul Zamudio MD on 12/01/2020 5:01 PM PST Approved by: Rahul Zamudio MD on 12/01/2020 5:01 PM PST Station ID: [id number]
[2020-12-01] MEDS ORDERED: hydrALAZINE INJ 20 MG/ML VIAL IVP STA (17:04)
[2020-12-01 18:53] LABS: B. PARAPERTUSSIS- RESP PCR PAN NOT DETECTED; B. PERTUSSIS- RESP PCR PANEL NOT DETECTED; CORONAVIRUS 229E-RESP PCR NOT DETECTED; CORONAVIRUS HKU1-RESP PCR NOT DETECTED; CORONAVIRUS NL63-RESP PCR NOT DETECTED; CORONAVIRUS OC43-RESP PCR NOT DETECTED; HUMAN METAPNEUMOVIRUS NOT DETECTED; INFLUENZA A- RESP PCR PANEL NOT DETECTED; INFLUENZA B - RESP PCR PANEL NOT DETECTED; PARAINFLUENZA VIRUS 1 NOT DETECTED; PARAINFLUENZA VIRUS 2 NOT DETECTED; PARAINFLUENZA VIRUS 3 NOT DETECTED; PARAINFLUENZA VIRUS 4 NOT DETECTED; RHINOVIRUS/ENTEROVIRUS NOT DETECTED; RSV- RESP PCR PANEL NOT DETECTED; SARS-CoV-2 -RESP PCR PANEL NOT DETECTED
[2020-12-01 18:54] LABS: C. PNEUMONIAE- RESP PCR PANEL NOT DETECTED; M. PNEUMONIAE- RESP PCR PANEL NOT DETECTED
[2020-12-01 20:14] VITALS: BP 159/87
--- OUTSIDE RECORDS SUMMARY | 2020-12-08 00:50 | EXTERNAL MEDICAL SUMMARY RPT | Continuity of Care Document ---
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[facility] BLOCK 2020-12-01 15:29 TRAUM SUBDR HEM W/O LOSS OF [facility] CONSCIOUSNESS, INIT 2020-12-01 15:29 OTHER FALL ON SAME LEVEL, INITIAL [facility] ENCOUNTER 2020-12-01 15:29 ACTIVITY, WALKING, MARCHING AND [facility] HIKING 2020-12-01 15:29 CONTACT W AND EXPOSURE TO OTH [facility] VIRAL COMMUNICABLE D 2020-12-01 15:29 SNF (CURRENT) USE OF ASPIRIN [facility] Allergies date description facility AMLODIPINE [facility] CHLORINE [facility] DUST MITE EXTRACT [facility] METOPROLOL [facility] POLLEN EXTRACT [facility] UNCODED NONSCREENABLE ALLERGEN [facility] NO ALLERGY INFORMATION AVAILABLE [facility] PENICILLINS [facility] SULFA (SULFONAMIDE ANTIBIOTICS) [facility] SHELLFISH-DERIVED PRODUCTS [facility] VARENICLINE [facility] CODEINE [facility] PSEUDOEPHEDRINE HCL [facility] GABAPENTIN [facility] HYDROXYCHLOROQUINE [facility] TIZANIDINE [facility] DULOXETINE [facility] ADHESIVE TAPE-SILICONES [facility] Tetanus Vaccines and Toxoid [facility] Results Social History date description facility [phone]
== END 2020-12-01 21:07 | disposition short-term general hospital (02) ==
LOC: ED 15:29
DX: S06.5X0A Traumatic subdural hemorrhage without loss of consciousness, initial encounter (principal); W18.39XA Other fall on same level, initial encounter; Y93.01 Activity, walking, marching and hiking; I10 Essential (primary) hypertension; I45.10 Unspecified right bundle-branch block; Z79.82 Long term (current) use of aspirin; Z20.828 Contact with and (suspected) exposure to other viral communicable diseases
CPT/HCPCS: 36415; 70496; 70498; 80053; 83690; 85025; 85610; 87631; 93005; 96374; 99285; Q9967; 0202U; 80320

== ENCOUNTER 2020-12-01 21:07 | Outpatient (CLI) | payer MEDICARE ==
--- OUTSIDE RECORDS SUMMARY | 2020-12-08 01:07 | EXTERNAL MEDICAL SUMMARY RPT | Continuity of Care Document ---
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[facility] BLOCK 2020-12-01 15:29 TRAUM SUBDR HEM W/O LOSS OF [facility] CONSCIOUSNESS, INIT 2020-12-01 15:29 OTHER FALL ON SAME LEVEL, INITIAL [facility] ENCOUNTER 2020-12-01 15:29 ACTIVITY, WALKING, MARCHING AND [facility] HIKING 2020-12-01 15:29 CONTACT W AND EXPOSURE TO OTH [facility] VIRAL COMMUNICABLE D 2020-12-01 15:29 RESIDENTIAL (CURRENT) USE OF ASPIRIN [facility] Allergies date description facility AMLODIPINE [facility] CHLORINE [facility] DUST MITE EXTRACT [facility] METOPROLOL [facility] POLLEN EXTRACT [facility] UNCODED NONSCREENABLE ALLERGEN [facility] NO ALLERGY INFORMATION AVAILABLE [facility] PENICILLINS [facility] SULFA (SULFONAMIDE ANTIBIOTICS) [facility] SHELLFISH-DERIVED PRODUCTS [facility] VARENICLINE [facility] CODEINE [facility] PSEUDOEPHEDRINE HCL [facility] GABAPENTIN [facility] HYDROXYCHLOROQUINE [facility] TIZANIDINE [facility] DULOXETINE [facility] ADHESIVE TAPE-SILICONES [facility] Tetanus Vaccines and Toxoid [facility] Results Social History date description facility [phone]
== END 2020-12-01 21:08 | disposition short-term general hospital (02) ==
LOC: EMS 21:07
PROVIDERS: ATTEND Surgery
DX: S06.5X9A Traumatic subdural hemorrhage with loss of consciousness of unspecified duration, initial encounter (principal); W18.30XA Fall on same level, unspecified, initial encounter
CPT/HCPCS: A0425; A0426

== ENCOUNTER 2021-04-15 15:12 | Outpatient (CLI) | payer MEDICARE | END 2021-04-15 15:13 | disposition home or self-care (01) | LOC: COV 15:12 | PROVIDERS: ATTEND Registered Nurse | DX: Z00.00 Encounter for general adult medical examination without abnormal findings (principal); Z20.822 Contact with and (suspected) exposure to COVID-19 ==

== ENCOUNTER 2021-04-26 10:10 | Outpatient (CLI) | payer MEDICARE ==
[2021-04-26 15:27] LABS: BASOPHILS # (AUTO) 0.1 10^3/uL (0.0-0.1); BASOPHILS % (AUTO) 0.7 %; EOSINOPHILS # (AUTO) 0.1 10^3/uL (0.0-0.7); EOSINOPHILS % (AUTO) 1.5 %; HCT - HEMATOCRIT 43.4 % (42.0-52.0); HGB - HEMOGLOBIN 14.4 g/dL (14.0-18.0); LYMPHOCYTES # (AUTO) 1.5 10^3/uL (1.5-3.5); LYMPHOCYTES % (AUTO) 20.4 %; MEAN CORPUSCULAR HEMOGLOBIN 31.4 pg (27.0-31.0); MEAN CORPUSCULAR HGB CONC 33.2 g/dL (32.0-36.0); MEAN CORPUSCULAR VOLUME 94.8 fL (80.0-94.0); MEAN PLATELET VOLUME 10.9 fL (7.4-11.4); MONOCYTES # (AUTO) 0.7 10^3/uL (0.0-1.0); NEUTROPHILS # (AUTO) 4.9 10^3/uL (1.5-6.6); PLT - PLATELET COUNT 191 10^3/uL (130-450); RED BLOOD COUNT 4.58 10^6/uL (4.70-6.10); RED CELL DISTRIBUTION WIDTH 12.1 % (12.0-15.0); WHITE BLOOD COUNT 7.3 x10^3/uL (4.8-10.8)
[2021-04-26 15:56] LABS: ALBUMIN 4.4 g/dL (3.2-5.5); ALBUMIN/GLOBULIN RATIO 1.1 (1.0-2.2); ALKALINE PHOSPHATASE 63 IU/L (42-121); ALT ALANINE AMINOTRANSFERASE 16 IU/L (10-60); AST ASPARTATE AMINOTRANSFERASE 20 IU/L (10-42); BUN - BLOOD UREA NITROGEN 22 mg/dL (6-20); CALCIUM 9.6 mg/dL (8.5-10.3); CARBON DIOXIDE - CO2 29 mmol/L (21-32); CHLORIDE 97 mmol/L (101-111); CHOL/HDL RATIO 4.3 (<5.0); CHOLESTEROL 234 mg/dL; CREATININE 1.1 mg/dL (0.6-1.2); GFR - MDRD 64 (>89); GLUCOSE 120 mg/dL (70-100); HDL CHOLESTEROL 55 mg/dL; LDL CHOLESTEROL,CALCULATED 148 mg/dL; LDL/HDL RATIO 2.7 (<3.6); POTASSIUM 3.3 mmol/L (3.5-5.0); SODIUM 137 mmol/L (135-145); TOTAL PROTEIN 8.3 g/dL (6.7-8.2); TRIGLYCERIDES 156 mg/dL; VLDL CHOLESTEROL 31 mg/dL
[2021-04-26 16:04] LABS: THYROID STIMULATING HORMONE 2.98 uIU/mL (0.34-5.60)
== END 2021-04-26 10:11 | disposition home or self-care (01) ==
LOC: LAB.S 10:10
PROVIDERS: ATTEND Registered Nurse
DX: N40.0 Benign prostatic hyperplasia without lower urinary tract symptoms (principal); R60.9 Edema, unspecified; R53.83 Other fatigue; J44.9 Chronic obstructive pulmonary disease, unspecified; F32.9 Major depressive disorder, single episode, unspecified; E78.5 Hyperlipidemia, unspecified; I10 Essential (primary) hypertension
CPT/HCPCS: 36415; 80053; 80061; 83721; 83880; 84443; 85025

== ENCOUNTER 2021-05-13 14:22 | Outpatient (CLI) | payer MEDICARE ==
--- NOTE | 2021-05-13 14:49 | SLEEP CARE CONSULTATION ---
Information from patient questionnaire entered by Twyla Castellon. I have reviewed and concur with the information entered by Twyla Castellon. This document represents the service I personally performed and the decisions made by , Марина Esparza ARNP. History of Present Illness Service Date and Time: 05/13/2021 1422 Previous diagnosis: Severe, Obstructive Sleep Apnea-Hypopnea Syndrome AHI: 34.5 (in 2015) Reason for follow up: annual (last seen 02/2019) Equipment type: CPAP Equipment obtained from: [employer] (getting supplies as needed) Mask style: Nasal Backup mask available: Yes (old mask) Last cushion change: 6 weeks ago Prior sleep studies: Yes Year and Where: 2015 - [facility] Sleep Type of Sleep Study: Polysomnography HPI additional information: LARON ARGUELLO was diagnosed to have severe, AHI 34.5, obstructive sleep apnea-hypopnea syndrome and returned today for CPAP therapy annual follow-up. CPAP Compliance Data - Data Reviewed with Patient Average duration of nightly device use: 8 hr 9 min Compliance rate %: 96.1 (180 days) Current pressure setting (cmH2O): 11-12 Humidity settin Heated hose settin Average residual AHI: 3.4 Average large leak: 8 min 31 sec Subjective Missed days of use due to: reports: illness (in hospital due to fall) Patient concerns: reports: dry mouth, nose, throat (uses humidifier and is at 4). denies: aerophagia, mask discomfort, air blowing in eyes, mask leak noise, condensation in mask/hose, nasal congestion, epistaxis, other Observed to snore while using device: No Current pressure setting perceived as: comfortable On therapy, patient: reports: sleeping better, awakening more refreshed, being more awake and alert during the day, more rested overall. denies: drowsiness while driving Initial Barton Sleepiness Scale score: 6 (in 2016) Current Barton Sleepiness Scale score: 4 Allergies and Home Medications Home medication list reviewed: Yes Allergy and home medication list: Amlodipine Clonidine Furosemide Aspirin 81 mg Chlorthalidone Review of Systems Review of systems same as previous: Yes (no changes) Physical Exam Blood Pressure: 143/81 Cuff size: wrist Heart Rate: 72 O2 Saturation: 98 Height: 5 ft 7 in Weight: 210 lb Body Mass Index: 32.8 BMI Classification: Obese Impression and Plan 1. Obstructive Sleep Apnea-Hypopnea Syndrome, severe, with good treatment compliance and good apnea control. On CPAP therapy, the patient has better sleep quality and is more rested overall. He gets some mouth dryness that he feels is affecting his gums. His humidity is set at 4 and he is not sure how to change it. Oral dryness can be reduced by adjusting humidity setting higher or heated hose lower or by adjusting both settings. I will have the discharge receptionist secretary adjust this for him. In addition, there are oral dryness products that can be used to reduce dryness such as Biotene products and Xylomelts. Patient's apnea severity and rationale for treatment to reduce apnea, improve sleep quality and reduce cardiovascular and cerebrovascular events was reviewed. I also reviewed the benefit of consistent device use of CPAP for hypertension and cerebrovascular disease. * Continue auto CPAP pressure at 11-12 cmH2O * Notify me if snoring with mask or feeling that the pressure is too much or too little * Attempt to lose weight * Call this office if any problems using CPAP * Return for follow up in 1 year, or sooner if concerns arise Counseling Topics: Spare mask, Weight loss health impact Visit Type: In Office Time Spent with Patient (minutes): 14 Provider Statement: I spent 100% of the Face to Face Visit with the patient with greater than 50% spent counseling the patient and coordination of care.
[2021-05-13 14:50] VITALS: BP 143/81
== END 2021-05-13 14:23 | disposition home or self-care (01) ==
LOC: SC 14:22
PROVIDERS: ATTEND Nurse Practitioner Family
DX: G47.33 Obstructive sleep apnea (adult) (pediatric) (principal); E66.9 Obesity, unspecified; Z68.32 Body mass index [BMI] 32.0-32.9, adult
CPT/HCPCS: 99212; G0463

== ENCOUNTER 2022-02-19 01:52 | Emergency (ER) | payer MEDICARE ==
[2022-02-19 02:28] LABS: BASOPHILS % (AUTO) 0.4 %; EOSINOPHILS # (AUTO) 0.1 10^3/uL (0.0-0.7); EOSINOPHILS % (AUTO) 1.3 %; HCT - HEMATOCRIT 38.9 % (42.0-52.0); HGB - HEMOGLOBIN 13.2 g/dL (14.0-18.0); LYMPHOCYTES # (AUTO) 0.8 10^3/uL (1.5-3.5); LYMPHOCYTES % (AUTO) 8.4 %; MEAN CORPUSCULAR HEMOGLOBIN 31.2 pg (27.0-31.0); MEAN CORPUSCULAR HGB CONC 33.9 g/dL (32.0-36.0); MEAN PLATELET VOLUME 10.5 fL (7.4-11.4); MONOCYTES # (AUTO) 0.6 10^3/uL (0.0-1.0); MONOCYTES % (AUTO) 6.6 %; NEUTROPHILS # (AUTO) 7.9 10^3/uL (1.5-6.6); PLT - PLATELET COUNT 183 10^3/uL (130-450); RED BLOOD COUNT 4.23 10^6/uL (4.70-6.10); RED CELL DISTRIBUTION WIDTH 12.8 % (12.0-15.0); WHITE BLOOD COUNT 9.5 x10^3/uL (4.8-10.8)
[2022-02-19 02:41] LABS: ALBUMIN 3.9 g/dL (3.2-5.5); ALBUMIN/GLOBULIN RATIO 1.1 (1.0-2.2); BILIRUBIN,TOTAL 0.6 mg/dL (0.2-1.0); CALCIUM 8.6 mg/dL (8.5-10.3); CREATININE 1.1 mg/dL (0.6-1.2); POTASSIUM 2.9 mmol/L (3.5-5.0); TOTAL PROTEIN 7.6 g/dL (6.7-8.2)
[2022-02-19] MEDS: SODIUM CHLORIDE 0.9% 500 ML IV STA (02:50)
[2022-02-19] MEDS: ONDANSETRON 4 MG/2 ML VIAL IVP STA (02:50)
[2022-02-19] MEDS: KETOROLAC 15 MG/ML VIAL IVP STA (02:54)
--- NOTE | 2022-02-19 03:25 | ED Physician Documentation ---
PD HPI ABD PAIN - Stated complaint Stated Complaint: R FLANK PX - Chief complaint Chief Complaint: Abd Pain - History obtained from History obtained from: Patient - Additional information Additional information: Patient presenting for evaluation of right flank pain that started around 9 PM. It was gradual in onset. He reports some anterior abdominal discomfort. It is achy in nature. Nothing makes his symptoms better or worse. He has had no urinary difficulties, no hematuria, no dysuria, noDifficulties with voiding. He denies fever, chest pain, difficulty breathing. He reports slight nausea but no emesis. His last bowel movement was 3 days ago. He is passing gas. Review of Systems Constitutional: denies: Fever Nose: denies: Congestion Cardiac: denies: Chest pain / pressure, Palpitations Respiratory: denies: Dyspnea, Cough GI: reports: Abdominal Pain, Nausea. denies: Vomiting, Diarrhea : denies: Dysuria, Hematuria Skin: denies: Rash Neurologic: denies: Headache PD PAST MEDICAL HISTORY - Past Medical History Past Medical History: Yes Cardiovascular: Hypertension Respiratory: None Neuro: CVA Endocrine/Autoimmune: None Psych: None Musculoskeletal: Osteoarthritis - Past Surgical History Past Surgical History: No General: Other - Present Medications Home Medications: Ambulatory Orders Medication Instructions Recorded Confirmed Aspirin Chewable [St Trevon 81 mg PO DAILY 04/09/17 02/19/22 Aspirin] Valsartan 80 mg PO DAILY 04/09/17 02/19/22 cloNIDine [Catapres] 0.1 mg PO BID 12/01/20 02/19/22 Chlorthalidone 12.5 mg PO DAILY 02/19/22 02/19/22 Potassium Chloride 10 meq PO DAILY 02/19/22 02/19/22 amLODIPine [Norvasc] 5 mg PO DAILY 02/19/22 02/19/22 - Allergies Allergies/Adverse Reactions: Allergies Allergy/AdvReac Type Severity Reaction Status Date / Time Tetanus Vaccines and Toxoid Allergy Unknown Verified 02/19/22 02:02 - Social History Does the pt smoke?: No Smoking Status: Never smoker Does the pt drink ETOH?: No Does the pt have substance abuse?: No - Immunizations Immunizations are current?: No Immunizations: TDAP >10years/unknown - POLST Patient has POLST: No PD ED PE NORMAL - General General: Alert and oriented X 3, No acute distress, Well developed/nourished - HEENT HEENT: Atraumatic, Moist mucous membranes - Neck Neck: Supple, no meningeal sign - Cardiac Cardiac: RRR, No murmur, Strong equal pulses - Respiratory Respiratory: No respiratory distress, Clear bilaterally - Abdomen Abdomen: Normal bowel sounds, Soft, Non tender, Non distended, Other (No pulsatile mass) - Back Back: No CVA TTP - Derm Derm: Warm and dry - Extremities Extremities: Other (Mild bilateral Lower extremity pitting edema) Results - Vitals Vitals: Vital Signs - 24 hr 02/19/22 02/19/22 02/19/22 01:52 02:50 03:40 Temperature 36.6 C Heart Rate 66 63 69 Respiratory 18 14 18 Rate Blood Pressure 137/71 H 118/65 128/60 O2 Saturation 96 95 100 02/19/22 05:03 Temperature 36.6 C Heart Rate 62 Respiratory 17 Rate Blood Pressure 129/58 L O2 Saturation 95 Oxygen O2 Source Room air - Labs Labs: Laboratory Tests 02/19/22 02/19/22 02/19/22 02:23 02:23 03:43 WBC 9.5 RBC 4.23 L Hgb 13.2 L Hct 38.9 L MCV 92.0 MCH 31.2 H MCHC 33.9 RDW 12.8 Plt Count 183 MPV 10.5 Neut # (Auto) 7.9 H Lymph # (Auto) 0.8 L [place] # (Auto) 0.6 Eos # (Auto) 0.1 Baso # (Auto) 0.0 Absolute Nucleated RBC 0.00 Nucleated RBC % 0.0 Sodium 134 L Potassium 2.9 L Chloride 95 L Carbon Dioxide 28 Anion Gap 11.0 BUN 20 Creatinine 1.1 Estimated GFR (MDRD) 64 L Glucose 150 H Calcium 8.6 Total Bilirubin 0.6 AST 16 ALT 13 Alkaline Phosphatase 51 Total Protein 7.6 Albumin 3.9 Globulin 3.7 Albumin/Globulin Ratio 1.1 Lipase 32 Urine Color YELLOW Urine Clarity CLEAR Urine pH 7.5 Ur Specific [place] 1.020 Urine Protein NEGATIVE Urine Glucose (UA) NEGATIVE Urine Ketones NEGATIVE Urine Occult Blood NEGATIVE Urine Nitrite NEGATIVE Urine Bilirubin NEGATIVE Urine Urobilinogen 0.2 (NORMAL) Ur Leukocyte Esterase NEGATIVE Ur Microscopic Review NOT INDICATED Urine Culture Comments NOT INDICATED PD MEDICAL DECISION MAKING - ED course ED course: Patient evaluated for right-sided abdominal pain with nausea. On arrival his abdominal exam is fairly benign. Labs with mild hypokalemia. Potassium replacement given. CT scan With some fecal retention but otherwise no significant findings. Patient's symptoms have resolved here. Reviewed instructions for constipation with the patient. He has MiraLAX at home and will continue to try using that as he had not been recently using it. He does not have symptoms to suggest a small bowel obstruction. His repeat abdominal exam remains benign and I do not think he has a surgical abdomen.He is aware of return precautions. Departure - Departure Disposition: Home, Self Care Clinical Impression: Hypokalemia Abdominal pain Qualifiers: Abdominal location: unspecified location Qualified Code(s): R10.9 - Unspecified abdominal pain Fecal retention Qualifiers: Constipation type: unspecified constipation type Qualified Code(s): K59.00 - Co nstipation, unspecified Condition: Stable Instructions: ED Constipation, ED Potassium Deficiency, ED Abdominal Pain Unkn Cause Male Comments: You were seen for abdominal pain. Your labs were reassuring other than your potassium was slightly low. You did receive medication to help you with your potassium. Your CT scan showedA lot of stool in your colon. Please resume using your MiraLAX Daily.If your pain returns or you have new symptoms such as vomiting or you have any other concerns please return to the emergency department.
[2022-02-19] MEDS: POTASSIUM CHLORIDE 20 MEQ TABLET PO STA (03:35)
[2022-02-19 03:51] LABS: BILIRUBIN,URINE NEGATIVE (NEGATIVE); GLUCOSE, URINE (UA) NEGATIVE (NEGATIVE); KETONES,URINE (UA) NEGATIVE (NEGATIVE); LEUKOCYTE ESTERASE, URINE NEGATIVE (NEGATIVE); NITRITE,URINE NEGATIVE (NEGATIVE); OCCULT BLOOD,URINE NEGATIVE (NEGATIVE); PH,URINE 7.5 PH (5.0-7.5); PROTEIN,URINE NEGATIVE (NEGATIVE); UROBILINOGEN,URINE 0.2 (NORMAL) E.U./dL (NORMAL)
[2022-02-19 03:52] LABS: CLARITY,URINE CLEAR (CLEAR)
[2022-02-19 05:44] VITALS: BP 128/70
--- NOTE | 2022-02-19 09:02 | CT Report ---
PROCEDURE: Abdomen/Pelvis WO INDICATIONS: R flank pain TECHNIQUE: Noncontrast 5 mm thick sections acquired from the diaphragms to the symphysis. 5 mm coronal and sagi ttal reformats were then performed. For radiation dose reduction, the following was used: automated exposure control, adjustment of mA and/or kV according to patient size. COMPARISON: 08/05/2013 FINDINGS: Image quality: Motion artifact is noted. ABDOMEN: Lung bases: Lung bases are clear. Heart size is normal. Solid organs: Liver and spleen are normal in size. An accessory splenule is incidentally noted leila g the hilum of the primary spleen. Gallbladder wall does not appear thickened. Pancreas is brenda l in contours. No adrenal nodules. Kidneys are normal in size, without hydronephrosis or nephrolith iasis. Peritoneum and bowel: Unenhanced bowel loops demonstrate normal wall thickness and caliber. No free fluid or air. A moderate amount of stool is seen within the colon. Nodes and vessels: No retroperitoneal or mesenteric adenopathy by size criteria. Aorta and inferior vena cava are normal in caliber. Atherosclerotic calcification is seen. Miscellaneous: No ventral hernias. PELVIS: Genitourinary: Bladder wall thickness is normal. Miscellaneous: No inguinal adenopathy. Postoperative right groin hernia repair can be seen. There i s a fat-containing left inguinal hernia. Bones: No suspicious bony lesions. There is a remote T8 compression deformity. IMPRESSION: Negative for stones or obstructive uropathy. There is a moderate amount of stool seen within the colon. Please correlate with clinical constipatio n. 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 Reviewed by: Jenaro Lin MD on 02/19/2022 8:01 AM [facility] Approved by: Jenaro Lin MD on 02/19/2022 8:01 AM [facility] Station ID: [id number]
== END 2022-02-19 05:50 | disposition home or self-care (01) ==
LOC: EDUNIT# → ED 01:52
DX: R10.9 Unspecified abdominal pain (principal); K59.00 Constipation, unspecified; E87.6 Hypokalemia
CPT/HCPCS: 36415; 74176; 80053; 81003; 83690; 85025; 96374; 96375; 99282; 99284; A9270; 81001; 87086

== ENCOUNTER 2022-04-12 09:13 | Outpatient (CLI) | payer MEDICARE ==
[2022-04-12 14:10] LABS: BASOPHILS % (AUTO) 0.5 %; EOSINOPHILS # (AUTO) 0.3 10^3/uL (0.0-0.7); EOSINOPHILS % (AUTO) 3.6 %; HCT - HEMATOCRIT 43.6 % (42.0-52.0); HGB - HEMOGLOBIN 14.5 g/dL (14.0-18.0); LYMPHOCYTES # (AUTO) 1.5 10^3/uL (1.5-3.5); LYMPHOCYTES % (AUTO) 19.9 %; MEAN CORPUSCULAR HEMOGLOBIN 31.3 pg (27.0-31.0); MEAN CORPUSCULAR HGB CONC 33.3 g/dL (32.0-36.0); MEAN PLATELET VOLUME 11.1 fL (7.4-11.4); MONOCYTES # (AUTO) 0.7 10^3/uL (0.0-1.0); MONOCYTES % (AUTO) 9.8 %; NEUTROPHILS # (AUTO) 4.9 10^3/uL (1.5-6.6); NEUTROPHILS % (AUTO) 65.9 %; PLT - PLATELET COUNT 206 10^3/uL (130-450); RED BLOOD COUNT 4.64 10^6/uL (4.70-6.10); WHITE BLOOD COUNT 7.4 x10^3/uL (4.8-10.8)
[2022-04-12 14:39] LABS: ALBUMIN/GLOBULIN RATIO 1.1 (1.0-2.2); ALKALINE PHOSPHATASE 61 IU/L (42-121); ALT ALANINE AMINOTRANSFERASE 12 IU/L (10-60); AST ASPARTATE AMINOTRANSFERASE 18 IU/L (10-42); BILIRUBIN,TOTAL 0.7 mg/dL (0.2-1.0); BUN - BLOOD UREA NITROGEN 17 mg/dL (6-20); CALCIUM 9.6 mg/dL (8.5-10.3); CARBON DIOXIDE - CO2 31 mmol/L (21-32); CHLORIDE 95 mmol/L (101-111); CHOL/HDL RATIO 3.9 (<5.0); CHOLESTEROL 235 mg/dL; CREATININE 1.3 mg/dL (0.6-1.2); GFR - MDRD 53 (>89); GLUCOSE 115 mg/dL (70-100); HDL CHOLESTEROL 61 mg/dL; LDL CHOLESTEROL,CALCULATED 159 mg/dL; LDL/HDL RATIO 2.6 (<3.6); POTASSIUM 3.6 mmol/L (3.5-5.0); SODIUM 136 mmol/L (135-145); TOTAL PROTEIN 7.7 g/dL (6.7-8.2); TRIGLYCERIDES 74 mg/dL; VLDL CHOLESTEROL 15 mg/dL
[2022-04-12 15:10] LABS: THYROID STIMULATING HORMONE 2.26 uIU/mL (0.34-5.60)
== END 2022-04-12 09:14 | disposition home or self-care (01) ==
LOC: LAB.S 09:13
PROVIDERS: ATTEND Registered Nurse
DX: I10 Essential (primary) hypertension (principal); J44.9 Chronic obstructive pulmonary disease, unspecified; G47.33 Obstructive sleep apnea (adult) (pediatric); E78.5 Hyperlipidemia, unspecified
CPT/HCPCS: 36415; 80053; 80061; 83721; 84443; 85025

== ENCOUNTER 2022-11-06 08:00 | Outpatient (CLI) | payer MEDICARE ==
--- NOTE | 2022-11-07 22:01 | XRAY Report ---
PROCEDURE: Chest 2 View X-Ray INDICATIONS: Acute cough TECHNIQUE: 2 views of the chest were acquired. COMPARISON: None FINDINGS: Surgical changes and devices: None. Lungs and pleura: No pleural effusions or pneumothorax. Lungs are clear. Mediastinum: Mediastinal contours are normal. Heart size is normal. Bones and chest wall: Remote T8 compression deformity. No new or acute vertebral body height loss lamberto ntified. IMPRESSION: No acute finding. Reviewed by: David Wright MD on 11/07/2022 10:00 PM [facility] Approved by: David Wright MD on 11/07/2022 10:00 PM [facility] Station ID: [id number]
== END 2022-11-06 23:59 | disposition home or self-care (01) ==
LOC: DI.S 08:00
PROVIDERS: ATTEND Registered Nurse
DX: R05.1 Acute cough (principal)

== ENCOUNTER → 2022-11-06 | Outpatient (CLI) | payer MEDICARE | END | disposition EMS.NT | LOC: EMS 16:53 | DX: R05.9 Cough, unspecified (principal) ==

== ENCOUNTER 2022-11-12 15:30 | Outpatient (CLI) | payer MEDICARE | END 2022-11-12 15:31 | disposition EMS.NT | LOC: EMS 15:30 | DX: R05.9 Cough, unspecified (principal) ==

== ENCOUNTER 2023-08-07 22:05 | Outpatient (CLI) | payer MEDICARE | END 2023-08-07 22:06 | disposition critical access hospital (66) | LOC: EMS 22:05 | DX: R11.2 Nausea with vomiting, unspecified (principal); M54.9 Dorsalgia, unspecified | CPT/HCPCS: A0425; A0429 ==

== ENCOUNTER 2023-08-07 22:36 | Emergency (ER) | payer MEDICARE ==
--- NOTE | 2023-08-07 23:01 | ED Physician Documentation ---
PD HPI NVD - Stated complaint Stated Complaint: VOMITING - Chief complaint Chief Complaint: Abd Pain - History obtained from History obtained from: Patient - Additonal information Additional information: BIBA. HPI from patient. Patient presents for nausea, vomiting, back pain. Patient states "I threw up my dinner". Patient says the symptoms started at approximately 5 PM this evening while at home, shortly after dinner, when he developed sudden onset of nausea followed by vomiting. As he was vomiting, he then experienced pain across his lower back. He received 4 mg Zofran IV from EMS on route. He says he feels improved at this time. He has not noted any exacerbating or ameliorating factors regarding the nausea/vomiting nor the back pain. He says he has had some episodes of similar back pain in the past, "but never like this". Review of Systems Constitutional: denies: Fever, Chills, Sweats Cardiac: denies: Chest pain / pressure Respiratory: reports: Cough ("for a few weeks", per patient). denies: Dyspnea GI: reports: Nausea, Vomiting. denies: Abdominal Pain, Abdominal Swelling, Constipation, Diarrhea, Hematemesis, Bloody / black stool : denies: Dysuria, Frequency Neurologic: denies: Headache PD PAST MEDICAL HISTORY - Past Medical History Past Medical History: Yes Cardiovascular: Hypertension Respiratory: None Neuro: CVA Endocrine/Autoimmune: None Psych: None Musculoskeletal: Osteoarthritis - Past Surgical History Past Surgical History: No General: Other - Present Medications Home Medications: Ambulatory Orders Medication Instructions Recorded Confirmed Aspirin Chewable [[place] 81 mg PO DAILY 04/09/17 02/19/22 Aspirin] Valsartan 80 mg PO DAILY 04/09/17 02/19/22 cloNIDine [Catapres] 0.1 mg PO BID 12/01/20 02/19/22 Chlorthalidone 12.5 mg PO DAILY 02/19/22 02/19/22 Potassium Chloride 10 meq PO DAILY 02/19/22 02/19/22 amLODIPine [Norvasc] 5 mg PO DAILY 02/19/22 02/19/22 Ondansetron Odt [Zofran Odt] 4 mg TL Q6H PRN #10 tablet 08/08/23 - Allergies Allergies/Adverse Reactions: Allergies Allergy/AdvReac Type Severity Reaction Status Date / Time Tetanus Vaccines and Toxoid Allergy Unknown Verified 03/27/22 02:02 - Social History Does the pt smoke?: No Smoking Status: Never smoker Does the pt drink ETOH?: No Does the pt have substance abuse?: No - Immunizations Immunizations are current?: No Immunizations: TDAP >10years/unknown - POLST Patient has POLST: No PD ED PE NORMAL - Vitals Vital signs reviewed: Yes - General General: No acute distress, Well developed/nourished, Other (drowsy, awakens to voice. oriented x 3. ) - HEENT HEENT: Other (tacky mucous membranes) - Neck Neck: Supple, no meningeal sign - Cardiac Cardiac: RRR, No murmur - Respiratory Respiratory: No respiratory distress, Other (subtle right-sided rhonchi diffusely (right hemithorax)) - Abdomen Abdomen: Normal bowel sounds, Soft, Non tender, Non distended - Derm Derm: Normal color, Warm and dry - Extremities Extremities: No edema Results - Vitals Vitals: Vital Signs - 24 hr 08/07/23 08/08/23 08/08/23 22:42 00:29 02:00 Temperature 36.6 C Heart Rate 70 74 70 Respiratory 20 18 18 Rate Blood Pressure 197/93 H 187/84 H 165/82 H O2 Saturation 94 97 98 08/08/23 08/08/23 08/08/23 03:16 04:00 05:23 Temperature Heart Rate 78 72 77 Respiratory 18 18 18 Rate Blood Pressure 150/71 H 149/79 H 150/63 H O2 Saturation 98 94 98 Oxygen O2 Source Room air - Labs Labs: Laboratory Tests 08/07/23 08/07/23 08/07/23 23:05 23:05 23:21 WBC 12.5 H RBC 4.90 Hgb 15.1 Hct 47.4 MCV 96.7 H MCH 30.8 MCHC 31.9 L RDW 12.3 Plt Count 171 MPV 10.8 Neut # (Auto) 10.9 H Lymph # (Auto) 1.1 L [place] # (Auto) 0.5 Eos # (Auto) 0.0 Baso # (Auto) 0.0 Absolute Nucleated RBC 0.00 Nucleated RBC % 0.0 Sodium 140 Potassium 3.8 Chloride 103 Carbon Dioxide 25 Anion Gap 12.0 BUN 16 Creatinine 1.2 Estimated GFR (MDRD) 58 L Glucose 151 H Calcium 8.8 Total Bilirubin 0.8 AST 20 ALT 16 Alkaline Phosphatase 46 Total Protein 7.9 Albumin 4.0 Globulin 3.9 Albumin/Globulin Ratio 1.0 Lipase 32 Urine Color YELLOW Urine Clarity CLEAR Urine pH 6.0 Ur Specific [place] 1.025 Urine Protein 30 H Urine Glucose (UA) NEGATIVE Urine Ketones TRACE Urine Occult Blood TRACE-LYSE Urine Nitrite NEGATIVE Urine Bilirubin NEGATIVE Urine Urobilinogen 0.2 (NORMAL) Ur Leukocyte Esterase NEGATIVE Urine RBC 0-5 Urine WBC 0-3 Ur Squamous Epith Cells RARE Squamous Urine Bacteria None Seen Ur Microscopic Review INDICATED Urine Culture Comments NOT INDICATED Nasal Adenovirus (PCR) Nasal B. parapertussis DNA (PCR) Nasal Coronavir 229E PCR Nasal Coronavir HKU1 PCR Nasal Coronavir NL63 PCR Nasal Coronavir OC43 PCR Nasal Enterovir/Rhinovir PCR Nasal Influenza B PCR Nasal Influenza A PCR Nasal Parainfluen 1 PCR Nasal Parainfluen 2 PCR Nasal Parainfluen 3 PCR Nasal Parainfluen 4 PCR Nasal RSV (PCR) Nasal B.pertussis DNA PCR Nasal C.pneumoniae (PCR) Lio Human Metapneumo PCR Nasal M.pneumoniae (PCR) Nasal SARS-CoV-2 (PCR) 08/07/23 23:33 WBC RBC Hgb Hct MCV MCH MCHC RDW Plt Count MPV Neut # (Auto) Lymph # (Auto) [place] # (Auto) Eos # (Auto) Baso # (Auto) Absolute Nucleated RBC Nucleated RBC % Sodium Potassium Chloride Carbon Dioxide Anion Gap BUN Creatinine Estimated GFR (MDRD) Glucose Calcium Total Bilirubin AST ALT Alkaline Phosphatase Total Protein Albumin Globulin Albumin/Globulin Ratio Lipase Urine Color Urine Clarity Urine pH Ur Specific [place] Urine Protein Urine Glucose (UA) Urine Ketones Urine Occult Blood Urine Nitrite Urine Bilirubin Urine Urobilinogen Ur Leukocyte Esterase Urine RBC Urine WBC Ur Squamous Epith Cells Urine Bacteria Ur Microscopic Review Urine Culture Comments Nasal Adenovirus (PCR) NOT DETECTED Nasal B. parapertussis DNA (PCR) NOT DETECTED Nasal Coronavir 229E PCR NOT DETECTED Nasal Coronavir HKU1 PCR NOT DETECTED Nasal Coronavir NL63 PCR NOT DETECTED Nasal Coronavir OC43 PCR NOT DETECTED Nasal Enterovir/Rhinovir PCR NOT DETECTED Nasal Influenza B PCR NOT DETECTED Nasal Influenza A PCR NOT DETECTED Nasal Parainfluen 1 PCR NOT DETECTED Nasal Parainfluen 2 PCR NOT DETECTED Nasal Parainfluen 3 PCR NOT DETECTED Nasal Parainfluen 4 PCR NOT DETECTED Nasal RSV (PCR) NOT DETECTED Nasal B.pertussis DNA PCR NOT DETECTED Nasal C.pneumoniae (PCR) NOT DETECTED Lio Human Metapneumo PCR NOT DETECTED Nasal M.pneumoniae (PCR) NOT DETECTED Nasal SARS-CoV-2 (PCR) NOT DETECTED - Rads (name of study) chest xray Relevant Findings:: Prelim report reviewed, See rad report PD Medical Decision Making - ED course Complexity details: reviewed results, re-evaluated patient, considered differential, d/w patient ED course: No concerning nor diagnostic findings on CBC (mild leukocytosis noted , WBC 12.5), ER abdominal panel (mild hyperglycemia, 151), UA (30 protein, otherwise negative), and negative respiratory PCR panel. No acute findings on CXR. Patient is given 1 liter NS for rehydration (replete losses from vomiting) and 4mg IV zofran for nausea. On reevaluation, he is in NAD. Results d/w patient. He is vague and non-committal in his answers regarding whether he feels better, whether he feels comfortable with discharge, and whether he feels he needs more anti-nausea medication or if he needs analgesic for back pain. I discussed with him that if he is having ongoing nausea and/or back pain, I would consider CT scan A/P with IV contrast (assess for diagnoses such as renal colic (unlikely given back pain is descries as bilateral and no hematuria on UA), AAA (no palpable mass nor tenderness on exam suggest against this diagnosis). I explained that, given lack of findings on exam and tests thus far, I would see potential diagnostic utility of CT scan if he has no improvement in his symptoms at this point. He asks for time to consider this. On subsequent reevaluations, he remains uncertain although continues to be in NAD. He is expressing concerns about not having pants (if he were to be discharged) and means of getting home. The patient's ED stay was thus prolonged but eventually we were able to "road test" patient; he was able to ambulate without difficulty, assistance, or discomfort to/from bathroom. ED RN contacted patient's ride who came to ED and took patient home. I did review return precautions prior to patient's d/c. The cause of his symptoms are not apparent at this time. Differential diagnosis considerations would include viral gastritis, particularly given that he says household contacts have had similar symptoms. Departure - Departure Disposition: 01 Home, Self Care Clinical Impression: Vomiting Qualifiers: Vomiting type: unspecified Nausea presence: with nausea Qualified Code(s): R11.2 - Nausea with vomiting, unspecified Condition: Good Instructions: ED Nausea Vomiting Follow-Up: Zofia Varner ARNP [Primary Care Provider] - Prescriptions: Ondansetron Odt [Zofran Odt] 4 mg TL Q6H PRN #10 tablet PRN Reason: Nausea / Vomiting Comments: There were no concerning or diagnostic findings on tonight's tests. The cause of your symptoms is not apparent at this time. Given that you have indicated s ome recent contact with other people who have had similar symptoms, a viral cause (viral gastritis) would be one of the more likely diagnoses (not testable in the ER). If you continue to have symptoms, they should only last for another 2 or 3 days. Follow-up with your primary care provider in 3 to 5 days if the symptoms persist. Certainly, if your symptoms worsen in any way, or if you develop new/concerning signs/symptoms (such as fever, worsening back pain, diarrhea, blood in your vomit or stool), you should return to the emergency department for reevaluation. I have electronically submitted a prescription for ondansetron (antinausea medication, and you received a dose of this medication in the emergency department) to the [facility] pharmacy in [place]. Forms: PCP List Discharge Date/Time: 08/08/23 05:29
[2023-08-07 23:09] LABS: BASOPHILS % (AUTO) 0.2 %; EOSINOPHILS % (AUTO) 0.1 %; HCT - HEMATOCRIT 47.4 % (42.0-52.0); HGB - HEMOGLOBIN 15.1 g/dL (14.0-18.0); LYMPHOCYTES # (AUTO) 1.1 10^3/uL (1.5-3.5); LYMPHOCYTES % (AUTO) 8.8 %; MEAN CORPUSCULAR HEMOGLOBIN 30.8 pg (27.0-31.0); MEAN CORPUSCULAR HGB CONC 31.9 g/dL (32.0-36.0); MEAN CORPUSCULAR VOLUME 96.7 fL (80.0-94.0); MEAN PLATELET VOLUME 10.8 fL (7.4-11.4); MONOCYTES # (AUTO) 0.5 10^3/uL (0.0-1.0); NEUTROPHILS # (AUTO) 10.9 10^3/uL (1.5-6.6); NEUTROPHILS % (AUTO) 86.6 %; PLT - PLATELET COUNT 171 10^3/uL (130-450); RED CELL DISTRIBUTION WIDTH 12.3 % (12.0-15.0); WHITE BLOOD COUNT 12.5 x10^3/uL (4.8-10.8)
[2023-08-07 23:22] LABS: BILIRUBIN,TOTAL 0.8 mg/dL (0.2-1.0); CALCIUM 8.8 mg/dL (8.5-10.3); CREATININE 1.2 mg/dL (0.6-1.2); POTASSIUM 3.8 mmol/L (3.5-5.0); TOTAL PROTEIN 7.9 g/dL (6.7-8.2)
[2023-08-07] MEDS ORDERED: SODIUM CHLORIDE 0.9% 1,000 ML IV STA (23:45)
[2023-08-07 23:49] LABS: BILIRUBIN,URINE NEGATIVE (NEGATIVE); GLUCOSE, URINE (UA) NEGATIVE (NEGATIVE); KETONES,URINE (UA) TRACE mg/dL (NEGATIVE); LEUKOCYTE ESTERASE, URINE NEGATIVE (NEGATIVE); NITRITE,URINE NEGATIVE (NEGATIVE); OCCULT BLOOD,URINE TRACE-LYSE (NEGATIVE); PROTEIN,URINE 30 mg/dL (NEGATIVE); UROBILINOGEN,URINE 0.2 (NORMAL) E.U./dL (NORMAL)
[2023-08-07 23:52] LABS: CLARITY,URINE CLEAR (CLEAR)
[2023-08-08] LABS: BACTERIA,URINE None Seen /HPF (None Seen); RBC,URINE 0-5 /HPF (0-5); SQUAMOUS EPITHELIAL CELL,UR RARE Squamous (<= Few); WBC,URINE 0-3 /HPF (0-3)
[2023-08-08 00:46] LABS: B. PARAPERTUSSIS- RESP PCR PAN NOT DETECTED; B. PERTUSSIS- RESP PCR PANEL NOT DETECTED; C. PNEUMONIAE- RESP PCR PANEL NOT DETECTED; CORONAVIRUS 229E-RESP PCR NOT DETECTED; CORONAVIRUS HKU1-RESP PCR NOT DETECTED; CORONAVIRUS NL63-RESP PCR NOT DETECTED; CORONAVIRUS OC43-RESP PCR NOT DETECTED; HUMAN METAPNEUMOVIRUS NOT DETECTED; INFLUENZA A- RESP PCR PANEL NOT DETECTED; INFLUENZA B - RESP PCR PANEL NOT DETECTED; M. PNEUMONIAE- RESP PCR PANEL NOT DETECTED; PARAINFLUENZA VIRUS 1 NOT DETECTED; PARAINFLUENZA VIRUS 2 NOT DETECTED; PARAINFLUENZA VIRUS 3 NOT DETECTED; PARAINFLUENZA VIRUS 4 NOT DETECTED; RHINOVIRUS/ENTEROVIRUS NOT DETECTED; RSV- RESP PCR PANEL NOT DETECTED; SARS-CoV-2 -RESP PCR PANEL NOT DETECTED
--- NOTE | 2023-08-08 01:32 | XRAY Report ---
PROCEDURE: Chest 2 View X-Ray INDICATIONS: right-sided rhonchi TECHNIQUE: 2 views of the chest were acquired. Exam completed and ready for interpretation on 08/08/2023 at 12:50 AM. COMPARISON: 10/29/2022. FINDINGS: Surgical changes and devices: None. Lungs and pleura: There is pulmonary vascular prominence suggestive of mild edema. No focal consolid ation. No pleural effusions or pneumothorax. Mediastinum: Mediastinal contours appear normal. Heart size is normal. Bones and chest wall: No suspicious bony lesions. Overlying soft tissues appear unremarkable. IMPRESSION: 1. Pulmonary vascular prominence suggestive of mild edema. No focal consolidation. Reviewed by: Gurwinder Spence MD on 08/08/2023 1:31 AM PDT Approved by: Gurwinder Spence MD on 08/08/2023 1:31 AM PDT Station ID: [id number]
[2023-08-08] MEDS ORDERED: ONDANSETRON ODT 4 MG Prepack 2 TL PRN (04:38)
[2023-08-08 05:32] VITALS: BP 150/63; O2SAT 98
== END 2023-08-08 05:29 | disposition home or self-care (01) ==
LOC: EDUNIT# → ED 22:36
DX: R11.2 Nausea with vomiting, unspecified (principal); I10 Essential (primary) hypertension; Z20.822 Contact with and (suspected) exposure to COVID-19
CPT/HCPCS: 36415; 80053; 81001; 81003; 83690; 85025; 87086; 87633; 99284

== ENCOUNTER 2023-11-22 13:10 | Outpatient (CLI) | payer MEDICARE | END 2023-11-22 13:11 | disposition short-term general hospital (02) | LOC: EMS 13:10 | DX: I44.2 Atrioventricular block, complete (principal); R06.00 Dyspnea, unspecified; R53.83 Other fatigue | CPT/HCPCS: A0425; A0427 ==

== ENCOUNTER 2024-07-19 20:50 | Outpatient (CLI) | payer MEDICARE | END 2024-07-19 20:51 | disposition critical access hospital (66) | LOC: EMS 20:50 | DX: R06.02 Shortness of breath (principal); I10 Essential (primary) hypertension | CPT/HCPCS: A0425; A0429 ==

== ENCOUNTER 2024-07-19 21:20 | Emergency (ER) | payer MEDICARE ==
--- NOTE | 2024-07-19 21:48 | ED Physician Documentation ---
History of Present Illness - Stated complaint Stated Complaint: SOA/HIGH BP - Chief complaint Chief Complaint: Resp - Additonal information Additional information: 84-year-old male with past medical significant for COPD, Complete heart block requiring pacer placement Octoberres chief complaint shortness of breath. Reports shortness of breath with exertion times several months. Today while sitting at home shortness of breath became markedly worse. States he is CPAP mask at night but does not take breathing treatments. Denies any wheeze, chest pain, abdominal pain. Review of Systems Constitutional: denies: Fever Eyes: denies: Loss of vision Ears: denies: Loss of hearing Nose: denies: Rhinorrhea / runny nose Throat: denies: Dental pain / toothache Cardiac: denies: Chest pain / pressure Respiratory: reports: Dyspnea, Cough. denies: Hemoptysis, Wheezing GI: denies: Abdominal Pain : denies: Dysuria Skin: denies: Rash Musculoskeletal: denies: Neck pain Neurologic: denies: Generalized weakness Psychiatric: denies: Depressed Endocrine: denies: Polydypsia Immunocompromised: denies: Immunocompromised PD PAST MEDICAL HISTORY - Past Medical History Cardiovascular: Hypertension Respiratory: None Neuro: CVA Endocrine/Autoimmune: None Psych: None Musculoskeletal: Osteoarthritis - Past Surgical History Past Surgical History: No General: Other - Present Medications Home Medications: Ambulatory Orders Medication Instructions Recorded Confirmed No Known Home Medications 07/20/24 07/20/24 - Allergies Allergies/Adverse Reactions: Allergies Allergy/AdvReac Type Severity Reaction Status Date / Time Tetanus Vaccines and Toxoid Allergy Unknown Verified 02/19/22 02:02 - Social History Does the pt smoke?: No Smoking Status: Never smoker Does the pt drink ETOH?: No Does the pt have substance abuse?: No - Immunizations Immunizations are current?: No Immunizations: TDAP >10years/unknown - POLST Patient has POLST: No Results - Vitals Vitals: Vital Signs - 24 hr 07/19/24 07/19/24 07/19/24 21:25 21:33 22:03 Temperature 37.0 C Heart Rate 96 93 Respiratory 20 20 Rate Blood Pressure 165/130 H 173/106 H O2 Saturation 97 93 If not protocol : Oxygen Flow, liters/minute 07/19/24 07/19/24 07/19/24 22:09 23:01 23:48 Temperature Heart Rate 94 88 87 Respiratory 20 21 17 Rate Blood Pressure 176/111 H 167/100 H O2 Saturation 91 L 90 L If not protocol : Oxygen Flow, liters/minute 07/19/24 07/20/24 07/20/24 23:58 01:00 03:00 Temperature Heart Rate 80 76 77 Respiratory 20 19 18 Rate Blood Pressure 151/104 H 148/93 H O2 Saturation 97 95 94 If not protocol 2 2 2 : Oxygen Flow, liters/minute Oxygen O2 Source Nasal cannula - EKG (time done) 2200 EKG releavant findings:: EKG personally interpreted by author of this note. Relevant findings are: Atrial sensed, ventricularly paced rhythm with rate 99 bpm. Normal axis. Normal AL interval. No concordant ST segment elevations, concordant ST segment depressions or excessive discordance. 037 EKG releavant findings:: EKG personally interpreted by author of this note. Relevant findings are: Atrial sensed, ventricularly paced rhythm with rate 81 bpm. Normal axis. No change from previous. - Labs Labs: Laboratory Tests 07/19/24 07/19/24 07/19/24 00:01 21:24 21:24 WBC 7.9 RBC 4.62 L Hgb 14.2 Hct 44.6 MCV 96.5 H MCH 30.7 MCHC 31.8 L RDW 13.1 Plt Count 164 MPV 11.4 Neut # (Auto) 5.1 Lymph # (Auto) 1.9 [place] # (Auto) 0.6 Eos # (Auto) 0.2 Baso # (Auto) 0.1 Absolute Nucleated RBC 0.00 Nucleated RBC % 0.0 VBG pH VBG pCO2 VBG pO2 VBG HCO3 VBG Total CO2 VBG O2 Saturation VBG Base Excess Sodium 134 L Potassium 4.6 H Chloride 103 Carbon Dioxide 25 Anion Gap 6.0 BUN 21 H Creatinine 1.3 Estimated GFR (MDRD) 53 L Glucose 121 H Calcium 9.3 Total Bilirubin 0.7 AST 16 ALT 8 L Alkaline Phosphatase 59 Troponin I High Sens 63.3 H* B-Natriuretic Peptide Total Protein 7.6 Albumin 4.0 Globulin 3.6 Albumin/Globulin Ratio 1.1 Lipase 18 Urine Color Urine Clarity Urine pH Ur Specific [place] Urine Protein Urine Glucose (UA) Urine Ketones Urine Occult Blood Urine Nitrite Urine Bilirubin Urine Urobilinogen Ur Leukocyte Esterase Ur Microscopic Review Urine Culture Comments Nasal Adenovirus (PCR) Nasal B. parapertussis DNA (PCR) Nasal Coronavir 229E PCR Nasal Coronavir HKU1 PCR Nasal Coronavir NL63 PCR Nasal Coronavir OC43 PCR Nasal Enterovir/Rhinovir PCR Nasal Influenza B PCR Nasal Influenza A PCR Nasal Parainfluen 1 PCR Nasal Parainfluen 2 PCR Nasal Parainfluen 3 PCR Nasal Parainfluen 4 PCR Nasal RSV (PCR) Nasal B.pertussis DNA PCR Nasal C.pneumoniae (PCR) Lio Human Metapneumo PCR Nasal M.pneumoniae (PCR) Nasal SARS-CoV-2 (PCR) 07/19/24 07/19/24 07/19/24 21:24 21:24 21:28 WBC RBC Hgb Hct MCV MCH MCHC RDW Plt Count MPV Neut # (Auto) Lymph # (Auto) [place] # (Auto) Eos # (Auto) Baso # (Auto) Absolute Nucleated RBC Nucleated RBC % VBG pH VBG pCO2 VBG pO2 VBG HCO3 VBG Total CO2 VBG O2 Saturation VBG Base Excess Sodium Potassium Chloride Carbon Dioxide Anion Gap BUN Creatinine Estimated GFR (MDRD) Glucose Calcium Total Bilirubin AST ALT Alkaline Phosphatase Troponin I High Sens 26.7 H* B-Natriuretic Peptide 321 H Total Protein Albumin Globulin Albumin/Globulin Ratio Lipase Urine Color Urine Clarity Urine pH Ur Specific [place] Urine Protein Urine Glucose (UA) Urine Ketones Urine Occult Blood Urine Nitrite Urine Bilirubin Urine Urobilinogen Ur Leukocyte Esterase Ur Microscopic Review Urine Culture Comments Nasal Adenovirus (PCR) NOT DETECTED Nasal B. parapertussis DNA (PCR) NOT DETECTED Nasal Coronavir 229E PCR NOT DETECTED Nasal Coronavir HKU1 PCR NOT DETECTED Nasal Coronavir NL63 PCR NOT DETECTED Nasal Coronavir OC43 PCR NOT DETECTED Nasal Enterovir/Rhinovir PCR NOT DETECTED Nasal Influenza B PCR NOT DETECTED Nasal Influenza A PCR NOT DETECTED Nasal Parainfluen 1 PCR NOT DETECTED Nasal Parainfluen 2 PCR NOT DETECTED Nasal Parainfluen 3 PCR NOT DETECTED Nasal Parainfluen 4 PCR NOT DETECTED Nasal RSV (PCR) NOT DETECTED Nasal B.pertussis DNA PCR NOT DETECTED Nasal C.pneumoniae (PCR) NOT DETECTED Lio Human Metapneumo PCR NOT DETECTED Nasal M.pneumoniae (PCR) NOT DETECTED Nasal SARS-CoV-2 (PCR) NOT DETECTED 07/19/24 07/19/24 21:46 22:01 WBC RBC Hgb Hct MCV MCH MCHC RDW Plt Count MPV Neut # (Auto) Lymph # (Auto) [place] # (Auto) Eos # (Auto) Baso # (Auto) Absolute Nucleated RBC Nucleated RBC % VBG pH 7.417 H VBG pCO2 40.2 L VBG pO2 40.9 VBG HCO3 25.3 VBG Total CO2 26.5 VBG O2 Saturation 78.1 VBG Base Excess 0.8 Sodium Potassium Chloride Carbon Dioxide Anion Gap BUN Creatinine Estimated GFR (MDRD) Glucose Calcium Total Bilirubin AST ALT Alkaline Phosphatase Troponin I High Sens B-Natriuretic Peptide Total Protein Albumin Globulin Albumin/Globulin Ratio Lipase Urine Color YELLOW Urine Clarity CLEAR Urine pH 6.0 Ur Specific [place] 1.025 Urine Protein TRACE Urine Glucose (UA) NEGATIVE Urine Ketones NEGATIVE Urine Occult Blood TRACE-INTA Urine Nitrite NEGATIVE Urine Bilirubin NEGATIVE Urine Urobilinogen 0.2 (NORMAL) Ur Leukocyte Esterase NEGATIVE Ur Microscopic Review NOT INDICATED Urine Culture Comments NOT INDICATED Nasal Adenovirus (PCR) Nasal B. parapertussis DNA (PCR) Nasal Coronavir 229E PCR Nasal Coronavir HKU1 PCR Nasal Coronavir NL63 PCR Nasal Coronavir OC43 PCR Nasal Enterovir/Rhinovir PCR Nasal Influenza B PCR Nasal Influenza A PCR Nasal Parainfluen 1 PCR Nasal Parainfluen 2 PCR Nasal Parainfluen 3 PCR Nasal Parainfluen 4 PCR Nasal RSV (PCR) Nasal B.pertussis DNA PCR Nasal C.pneumoniae (PCR) Lio Human Metapneumo PCR Nasal M.pneumoniae (PCR) Nasal SARS-CoV-2 (PCR) PD Medical Decision Making - ED course Complexity details: reviewed old records, reviewed results, re-evaluated patient, considered differential, d/w patient, d/w investment consultant ED course: 84-year-old male with past medical significant for COPD, pacer placement in setting complete heart block October 2023 at problem ever presents to the emergency department shortness of breath. Endorse for shortness of breath with exertion ongoing times several months with a severe episode shortness of breath at around 2000 hrs. this evening. Reported chest tightness but no chest pain. On arrival to the emergency department he is afebrile, he medically stable. No focal lateralizing neurologic deficits. He has clear aeration in all lung cline and does not demonstrate respiratory distress. His initial EKG demonstrates an atrial sensed ventricularly paced rhythm with no clear indication of acute cardiac ischemia. His first high-sensitivity troponin is mildly elevated at greater than 26. His repeat however has up trended to 63 with a positive delta of 41. While in the emergency department he demonstrated some lower oxygen saturations and required 2 L nasal cannula for supplemental oxygen. CT the chest did not show PE, pneumothorax, hemothorax or injury to the great vessels but did show findings concerning for pulmonary edema. He is a minimal elevation beta natruretic peptide at 321. He is given 40 mg Lasix. Additionally I started aspirin, Plavix and is given dose of Lovenox here in the emergency department. His care was discussed with cardiology at [facility], Dr. Jurado as well as with the hospitalist service at Dr. Valente Reynoso. Transfer apartment facility to [facility] for further evaluation and treatment.. Departure - Departure Disposition: 02 Transfer Acute Care Hosp Clinical Impression: NSTEMI (non-ST elevated myocardial infarction) Respiratory failure Qualifiers: Chronicity: acute Respiratory failure complication: hypoxia Qualified Code(s): J96.01 - Acute respiratory failure with hypoxia Pulmonary edema Qualifiers: Chronicity: acute Qualified Code(s): J81.0 - Acute pulmonary edema Forms: PCP List
[2024-07-19 21:56] LABS: BASOPHILS # (AUTO) 0.1 10^3/uL (0.0-0.1); BASOPHILS % (AUTO) 0.6 %; EOSINOPHILS # (AUTO) 0.2 10^3/uL (0.0-0.7); EOSINOPHILS % (AUTO) 2.9 %; HCT - HEMATOCRIT 44.6 % (42.0-52.0); HGB - HEMOGLOBIN 14.2 g/dL (14.0-18.0); LYMPHOCYTES # (AUTO) 1.9 10^3/uL (1.5-3.5); LYMPHOCYTES % (AUTO) 23.4 %; MEAN CORPUSCULAR HEMOGLOBIN 30.7 pg (27.0-31.0); MEAN CORPUSCULAR HGB CONC 31.8 g/dL (32.0-36.0); MEAN CORPUSCULAR VOLUME 96.5 fL (80.0-94.0); MEAN PLATELET VOLUME 11.4 fL (7.4-11.4); MONOCYTES # (AUTO) 0.6 10^3/uL (0.0-1.0); MONOCYTES % (AUTO) 8.1 %; NEUTROPHILS # (AUTO) 5.1 10^3/uL (1.5-6.6); NEUTROPHILS % (AUTO) 64.7 %; PLT - PLATELET COUNT 164 10^3/uL (130-450); RED BLOOD COUNT 4.62 10^6/uL (4.70-6.10); RED CELL DISTRIBUTION WIDTH 13.1 % (12.0-15.0); WHITE BLOOD COUNT 7.9 x10^3/uL (4.8-10.8)
[2024-07-19 21:57] LABS: BILIRUBIN,URINE NEGATIVE (NEGATIVE); GLUCOSE, URINE (UA) NEGATIVE (NEGATIVE); KETONES,URINE (UA) NEGATIVE (NEGATIVE); LEUKOCYTE ESTERASE, URINE NEGATIVE (NEGATIVE); NITRITE,URINE NEGATIVE (NEGATIVE); OCCULT BLOOD,URINE TRACE-INTA (NEGATIVE); PROTEIN,URINE TRACE mg/dL (NEGATIVE); UROBILINOGEN,URINE 0.2 (NORMAL) E.U./dL (NORMAL)
[2024-07-19 22:01] LABS: CLARITY,URINE CLEAR (CLEAR)
[2024-07-19 22:07] LABS: VBG PH 7.417 (7.31-7.41)
[2024-07-19 22:08] LABS: VBG BASE EXCESS 0.8 mmol/L (-2 - +2); VBG HCO3 25.3 mmol/L (23-28); VBG OXYGEN SATURATION 78.1 % (60-80); VBG PCO2 40.2 mmHg (41-51); VBG PO2 40.9 mmHg (25-47); VBG TOTAL CO2 26.5 mmol/L (24-29)
[2024-07-19] MEDS: IPRATROPIUM/ALBUTEROL 3 ML NEB INH STA (22:09)
[2024-07-19 22:10] LABS: ALBUMIN/GLOBULIN RATIO 1.1 (1.0-2.2); BILIRUBIN,TOTAL 0.7 mg/dL (0.2-1.0); CALCIUM 9.3 mg/dL (8.5-10.3); CREATININE 1.3 mg/dL (0.6-1.3); POTASSIUM 4.6 mmol/L (3.5-4.5); TOTAL PROTEIN 7.6 g/dL (6.4-8.9)
[2024-07-19] MEDS ORDERED: iohexoL-300 100 ML VIAL ONE (22:40)
[2024-07-19 22:52] LABS: B. PARAPERTUSSIS- RESP PCR PAN NOT DETECTED; B. PERTUSSIS- RESP PCR PANEL NOT DETECTED; C. PNEUMONIAE- RESP PCR PANEL NOT DETECTED; CORONAVIRUS 229E-RESP PCR NOT DETECTED; CORONAVIRUS HKU1-RESP PCR NOT DETECTED; CORONAVIRUS NL63-RESP PCR NOT DETECTED; CORONAVIRUS OC43-RESP PCR NOT DETECTED; HUMAN METAPNEUMOVIRUS NOT DETECTED; INFLUENZA A- RESP PCR PANEL NOT DETECTED; INFLUENZA B - RESP PCR PANEL NOT DETECTED; M. PNEUMONIAE- RESP PCR PANEL NOT DETECTED; PARAINFLUENZA VIRUS 1 NOT DETECTED; PARAINFLUENZA VIRUS 2 NOT DETECTED; PARAINFLUENZA VIRUS 3 NOT DETECTED; PARAINFLUENZA VIRUS 4 NOT DETECTED; RHINOVIRUS/ENTEROVIRUS NOT DETECTED; RSV- RESP PCR PANEL NOT DETECTED; SARS-CoV-2 -RESP PCR PANEL NOT DETECTED
[2024-07-19] MEDS: iohexoL-300 100 ML VIAL IVP ONE (22:55)
--- NOTE | 2024-07-19 23:16 | CT Report ---
PROCEDURE: Angio Chest INDICATIONS: Rule out PE CONTRAST: [id number] 80 ml TECHNIQUE: After the administration of intravenous contrast, 2 mm axial images were acquired from the pulmonary apices to the posterior costophrenic angles during the arterial phase. In addition, 1 mm lung kernel and 5 mm soft tissue kernel reconstructions were performed. 3-dimensional coronal oblique maximum int ensity projection (MIP) reformats, 8 mm axial MIP, and 5 mm coronal and sagittal MPR reformats were t hen performed through the thorax. For radiation dose reduction, the following was used: automated exp osure control, adjustment of mA and/or kV according to patient size. COMPARISON: None. FINDINGS: Image quality: Motion degraded. Large vessels: No filling defects within the opacified pulmonary arteries, accounting for motion and contrast timing. No evidence of acute aortic syndrome or aortic aneurysm. Lungs and pleura: Evaluation is limited secondary to respiratory motion. Small bilateral pleural effu sions, right greater than left. Interlobular septal thickening is noted, suggestive of pulmonary arnulfo a. Small consolidative opacity within the posterior lingula. Mediastinum: Heart size is normal. No pericardial effusion. No large vessel abnormality. Prominent an d mildly enlarged mediastinal lymph nodes. Chest wall and lower neck: Thyroid is unremarkable. No axillary or supraclavicular adenopathy by size . Bones: No aggressive osseous abnormality. Moderate compression deformity of T8 is stable. Upper Abdomen: Unremarkable. IMPRESSION: 1.No pulmonary embolus. 2.Small bilateral pleural effusions, right greater left. Intralobular septal thickening, suggestive o f pulmonary edema. 3.Small opacity in the lingula, may be infectious in etiology. Reviewed by: John Keyes MD on 07/19/2024 11:15 PM PDT Approved by: John Keyes MD on 07/19/2024 11:15 PM PDT Station ID: [id number]
[2024-07-20] MEDS: CLOPIDOGREL 75 MG TABLET PO STA (01:08)
[2024-07-20] MEDS: ASPIRIN CHEW 81 MG TABLET PO STA (01:08)
[2024-07-20] MEDS: ENOXAPARIN 80 MG/0.8 ML SYRINGE SUBQ STA (01:09)
[2024-07-20] MEDS: FUROSEMIDE 40 MG/4 ML VIAL IVP STA (01:09)
[2024-07-20 03:34] VITALS: O2SAT 94
[2024-07-20 05:11] VITALS: BP 117/99
== END 2024-07-20 06:19 | disposition short-term general hospital (02) ==
LOC: EDUNIT# → ED 21:20
DX: I21.4 Non-ST elevation (NSTEMI) myocardial infarction (principal); J96.01 Acute respiratory failure with hypoxia; J81.0 Acute pulmonary edema; I10 Essential (primary) hypertension
CPT/HCPCS: 36415; 71275; 80053; 81003; 82803; 83690; 83880; 84484; 85025; 87633; 93005; 94640; 94664; 96374; 99285; A9270; J1650; Q9967; 81001; 87086